=== PATIENT | female | born 1970 | race Caucasian/White ===

== ENCOUNTER 2019-02-28 13:29 | Emergency (ER) | payer MEDICARE, MEDICAID ==
[~2019-02-28] VITALS: Ht 172.7 cm; Wt 107.7 kg
[~2019-02-28 13:29] MED LIST: ACET-2119 PO; ALB0.5UD IH; ALBU18HF2 IH; ALBU4TAB4 PO; ATI1T PO; BUDE10.24 IH; CETI-1 PO; DULO-31 PO; EPIN0.3A2; HYDR-2514 PO; IMMU100V4 IV; LANS30CA56 PO; METH500T PO; MONT10TA21 PO; OMAL150V SQ; PREG75CA30 PO; THEO400C PO
[2019-02-28] MEDS ORDERED: normal saline 1000ML IV soln IVB ONE (15:15)
[2019-02-28] MEDS ORDERED: albuterol 2.5 MG/3 ML nebule CONTNEB PRN (15:15)
[2019-02-28] MEDS ORDERED: methylPREDNISolone sod succ 125mg/2ml vial IV ONE (15:15)
[2019-02-28] MEDS ORDERED: magnesium 2GM in 50ml NS 50 ML IV ONE (15:15)
[2019-02-28 15:48] LABS: BASOPHILS % (AUTO) 0.7 % (0-1); EOSINOPHILS % (AUTO) 0.6 % (0-6); HEMATOCRIT 42.2 % (35.0-45.0); HEMOGLOBIN 14.6 g/dl (12.0-16.0); LYMPHOCYTES # (AUTO) 0.9 X10'3 (1.1-4.8); LYMPHOCYTES % (AUTO) 13.4 % (21-51); MEAN CORPUSCULAR HEMOGLOBIN 31.3 PG (27.0-31.0); MEAN CORPUSCULAR HGB CONC 34.5 g/dL (33.0-36.5); MEAN CORPUSCULAR VOLUME 90.8 FL (78-98); MEAN PLATELET VOLUME 8.7 FL (7.4-10.4); MONOCYTES # (AUTO) 0.5 X10'3 (0-0.9); MONOCYTES % (AUTO) 7.5 % (2-12); NEUTROPHILS # (AUTO) 5.2 X10'3 (1.8-7.7); NEUTROPHILS % (AUTO) 77.8 % (42-75); PLATELET COUNT 248 X10'3 (140-440); RED BLOOD COUNT 4.65 X10'6 (4.20-5.60); RED CELL DISTRIBUTION WIDTH 14.6 % (11.5-14.5); WHITE BLOOD COUNT 6.7 X10'3 (4.5-11.0)
[2019-02-28 15:59] LABS: ALANINE AMINOTRANSFERASE 42 U/L (12-78); ALBUMIN/GLOBULIN RATIO 0.6 (1.1-1.5); ALKALINE PHOSPHATASE 85 IU/L (46-116); ANION GAP 9 (8-16); ASPARTATE AMINO TRANSFERASE 45 U/L (10-37); BILIRUBIN,TOTAL 0.4 MG/DL (0.1-1.0); BLOOD UREA NITROGEN 17 MG/DL (7-18); BUN/CREATININE RATIO 16.3 (6.6-38.0); CALCIUM 8.8 MG/DL (8.5-10.1); CHLORIDE 104 MMOL/L (99-107); CREATININE 1.04 MG/DL (0.40-0.90); GLUCOSE 94 MG/DL (70-104); POTASSIUM 3.5 MMOL/L (3.5-5.1); SODIUM 141 MMOL/L (135-145); TOTAL CARBON DIOXIDE 28.2 MMOL/L (24-32); TOTAL PROTEIN 7.7 G/DL (6.4-8.2); eGFR 57 ML/MIN
[2019-02-28] MEDS ORDERED: PRED20TA PO (17:36)
[2019-02-28] MEDS ORDERED: GUAI120015 PO (17:36)
[2019-02-28 17:57] VITALS: BP 132/71
== END 2019-02-28 18:00 | disposition home or self-care (01) ==
LOC: ER 13:30
DX: J44.1 Chronic obstructive pulmonary disease with (acute) exacerbation (principal); K21.9 Gastro-esophageal reflux disease without esophagitis; G89.29 Other chronic pain; F41.9 Anxiety disorder, unspecified; F32.9 Major depressive disorder, single episode, unspecified; Z98.890 Other specified postprocedural states; Z90.710 Acquired absence of both cervix and uterus; Z88.0 Allergy status to penicillin; Z88.6 Allergy status to analgesic agent; Z88.1 Allergy status to other antibiotic agents; Z88.8 Allergy status to other drugs, medicaments and biological substances; Z79.899 Other long term (current) drug therapy
CPT/HCPCS: 36415; 71045; 80053; 83605; 84484; 85025; 87040; 93005; 94640; 96365; 96366; 96375; 99284; J2930; J3475; J7030

== ENCOUNTER 2019-08-05 08:52 | Emergency (ER) | payer MEDICARE, MEDICAID ==
[~2019-08-05] VITALS: Ht 172.7 cm; Wt 88.7 kg
[~2019-08-05 08:52] MED LIST changes: +GUAI120015 PO
[2019-08-05 08:56] VITALS: BP 168/103
[2019-08-05] MEDS ORDERED: ACET-3068 PO (10:24)
--- NOTE | 2019-08-05 11:21 | NUR ---
PATIENT INSTRUCTED ON USE OF INCENTIVE SPIROMETER. PATIENT VERBALIZED UNDERSTANDING AND AWARE TO USE Q 1 HOUR WHILE AWAKE FOR DEEP INSPIRATION ENCOURAGEMENT.
== END 2019-08-05 11:32 | disposition home or self-care (01) ==
LOC: ER 08:52
DX: R07.89 Other chest pain (principal); J44.9 Chronic obstructive pulmonary disease, unspecified; K21.9 Gastro-esophageal reflux disease without esophagitis; G89.29 Other chronic pain; M79.7 Fibromyalgia; F12.90 Cannabis use, unspecified, uncomplicated; Z98.890 Other specified postprocedural states; Z90.710 Acquired absence of both cervix and uterus; Z79.899 Other long term (current) drug therapy; Z88.6 Allergy status to analgesic agent; Z88.0 Allergy status to penicillin; Z88.1 Allergy status to other antibiotic agents
CPT/HCPCS: 71046; 93005; 99283

== ENCOUNTER 2021-03-29 21:55 | Inpatient (IN) | payer MEDICARE, MEDICAID ==
[~2021-03-29] VITALS: Ht 172.7 cm; Wt 113.0 kg
[2021-03-29] MEDS ORDERED: ondansetron/PF 4mg/2ml inj IV ONE (22:25)
[2021-03-29] MEDS ORDERED: morphine 4 MG/ML inj SYRINge IV ONE (22:25)
[2021-03-29] MEDS ORDERED: normal saline 1000ml 1,000 ML IV ONE (22:25)
[2021-03-29] MEDS ORDERED: iohexol 300mg/ml 100ml inj. ONE (23:53)
[2021-03-30] MEDS ORDERED: vancomycin/NS 1 GM ADD-VANTAGE 250 ML IV STA ×2 (01:05→03:33)
[2021-03-30] MEDS ORDERED: metroNIDAZOLE-Flagyl 500mg/NS 100 ML IV STA (01:05)
[2021-03-30] MEDS ORDERED: ciprofloxacin lact 400MG/200ML 200 ML IV STA (01:05)
[2021-03-30 01:09] LABS: LYMPHOCYTES # (AUTO) 0.6 X10'3 (1.1-4.8)
[2021-03-30 01:10] LABS: BASOPHILS % (AUTO) 0.3 % (0-1); EOSINOPHILS % (AUTO) 0.1 % (0-6); HEMATOCRIT 41.3 % (35.0-45.0); LYMPHOCYTES % (AUTO) 4.9 % (21-51); MEAN CORPUSCULAR HEMOGLOBIN 29.6 PG (27.0-31.0); MEAN CORPUSCULAR HGB CONC 33.9 g/dL (33.0-36.5); MEAN CORPUSCULAR VOLUME 87.3 FL (78-98); MEAN PLATELET VOLUME 8.8 FL (7.4-10.4); MONOCYTES # (AUTO) 0.9 X10'3 (0-0.9); MONOCYTES % (AUTO) 7.6 % (2-12); NEUTROPHILS # (AUTO) 10.7 X10'3 (1.8-7.7); NEUTROPHILS % (AUTO) 87.1 % (42-75); PLATELET COUNT 253 X10'3 (140-440); RED BLOOD COUNT 4.73 X10'6 (4.20-5.60); RED CELL DISTRIBUTION WIDTH 14.1 % (11.5-14.5); WHITE BLOOD COUNT 12.3 X10'3 (4.5-11.0)
[2021-03-30 01:19] LABS: ALANINE AMINOTRANSFERASE 47 U/L (12-78); ALBUMIN 3.3 G/DL (3.4-5.0); ALBUMIN/GLOBULIN RATIO 0.7 (1.1-1.5); ALKALINE PHOSPHATASE 105 IU/L (46-116); ANION GAP 11 (8-16); ASPARTATE AMINO TRANSFERASE 36 U/L (10-37); BILIRUBIN,DIRECT 0.1 MG/DL (0-0.3); BILIRUBIN,TOTAL 0.7 MG/DL (0.1-1.0); BLOOD UREA NITROGEN 13 MG/DL (7-18); BUN/CREATININE RATIO 10.8 (6.6-38.0); CALCIUM 9.1 MG/DL (8.5-10.1); CHLORIDE 99 MMOL/L (99-107); GLUCOSE 146 MG/DL (70-104); LIPASE 90 U/L (73-393); POTASSIUM 4.4 MMOL/L (3.5-5.1); SODIUM 134 MMOL/L (135-145); TOTAL PROTEIN 7.8 G/DL (6.4-8.2); eGFR 48 ML/MIN
[2021-03-30] MEDS ORDERED: MONT-40 PO (01:22)
[2021-03-30] MEDS ORDERED: LUBI24CA9 PO (01:22)
[2021-03-30] MEDS ORDERED: TERB5TAB4 PO (01:22)
[2021-03-30] MEDS ORDERED: DULO60CA65 PO (01:22)
[2021-03-30] MEDS ORDERED: THEO400T PO (01:22)
[2021-03-30] MEDS ORDERED: SENN-263 PO (01:22)
[2021-03-30] MEDS ORDERED: METO5TAB98 PO (01:22)
[2021-03-30] MEDS ORDERED: BUDE10.2 PO (01:22)
[2021-03-30] MEDS ORDERED: PREG200C28 PO (01:22)
[2021-03-30] MEDS ORDERED: OMEP20TA5 PO (01:22)
[2021-03-30] MEDS ORDERED: TIOT4MIS2 PO (01:22)
[2021-03-30] MEDS ORDERED: LUBI8CAP5 PO (01:22)
[2021-03-30] MEDS ORDERED: potassium Cl 20 mEq SR tablet PO PRN ×2 (03:20)
[2021-03-30] MEDS ORDERED: potassium CL 10mEq/100ml bag 100 ML IV PRN (03:20)
[2021-03-30] MEDS ORDERED: magnesium Cl slow-release 64mg tablet PO PRN (03:20)
[2021-03-30] MEDS ORDERED: acetaminophen 325mg tablet PO PRN ×2 (03:20)
[2021-03-30] MEDS ORDERED: magnesium 2GM in 50ml NS 50 ML IV PRN (03:20)
[2021-03-30] MEDS ORDERED: morphine 2 MG/ML inj. syringe IV PRN (03:20)
[2021-03-30] MEDS ORDERED: magnesium 4gm in 100ml NS 100 ML IV PRN (03:20)
[2021-03-30] MEDS: normal saline 1000ml 1,000 ML IV SCH ×3 (04:02→23:20)
[2021-03-30] MEDS: metroNIDAZOLE-Flagyl 500mg/NS 100 ML IV SCH ×2 (04:02→17:40)
[2021-03-30] MEDS: morphine 2 MG/ML inj. syringe IV PRN ×3 (04:12→16:16)
[2021-03-30] MEDS: ondansetron/PF 4mg/2ml inj IV PRN ×2 (04:13→09:46)
[2021-03-30] MEDS: ipratropium 0.5 MG/2.5ML nebule NEB PRN (07:19)
[2021-03-30] MEDS: albuterol 2.5 MG/3 ML nebule NEB SCH ×3 (07:19→20:53)
[2021-03-30] MEDS: budesonide 0.5mg/2ml UD nebule IH SCH ×2 (07:19→20:53)
[2021-03-30] MEDS ORDERED: non-formulary drug (Budesonide/Formoterol Fumarate (Symbicort 160-4.5 Mcg Inhaler) 2 PUFFS PO SCH (08:00)
[2021-03-30 08:31] LABS: CLARITY,URINE CLEAR (Clear); COLOR,URINE YELLOW (Yellow); GLUCOSE, URINE NEGATIVE (Neg); KETONES,URINE NEGATIVE (Neg); LEUKOCYTE ESTERASE ,URINE NEGATIVE (Neg); NITRITES, URINE NEGATIVE (Neg); OCCULT BLOOD,URINE NEGATIVE (Neg); PROTEIN,URINE NEGATIVE (Neg); UROBILINOGEN,URINE 0.2 E.U/dL (0.2-1.0)
[2021-03-30 08:40] LABS: UA COLLECTION TYPE CLN CATCH MIDSTREAM
[2021-03-30] MEDS: TERBUTALINE 2.5 MG PO SCH ×2 (09:44→21:43)
[2021-03-30] MEDS: duloxetine 30mg CAPSULE.DR PO SCH ×2 (09:44→20:15)
[2021-03-30] MEDS: K and/or MAG REPLACEMENT MC SCH ×2 (09:44→20:00)
[2021-03-30] MEDS: theophylline anhydrous 100mg ER capsule 24-hour PO SCH ×2 (09:45→21:46)
[2021-03-30] MEDS: pregabalin 25mg capsule PO SCH ×2 (09:45→20:15)
[2021-03-30] MEDS: montelukast 10mg tablet PO SCH (09:45)
[2021-03-30] MEDS: pantoprazole 40mg Tablet.DR PO SCH (09:45)
[2021-03-30] MEDS: pregabalin 75mg capsule PO SCH ×2 (09:45→20:17)
[2021-03-30] MEDS: heparin, porcine 5000 units/ml vial SQ SCH ×2 (09:46→16:00)
--- NOTE | 2021-03-30 16:58 | NUR ---
patient arrived to the unit [id number], no signs of distress, no belongings. Patinets vitals taken , patient is resting comfortably
--- NOTE | 2021-03-30 18:25 | NUR ---
Patient in room [facility] 354. I have received report from Luzmaria ADAMS and had the opportunity to ask questions and assume patient care.
[2021-03-30 19:00] VITALS: BP 145/67
[2021-03-30] MEDS: HYDROcodone/acetaminophen 10/325mg tab PO PRN (20:16)
[2021-03-30] MEDS: ciprofloxacin lact 400MG/200ML 200 ML IV SCH (21:52)
[2021-03-31] VITALS: BP 97/50
[2021-03-31] MEDS: heparin, porcine 5000 units/ml vial SQ SCH ×4 (00:33→23:48)
[2021-03-31] MEDS: metroNIDAZOLE-Flagyl 500mg/NS 100 ML IV SCH ×4 (00:35→23:47)
[2021-03-31] MEDS: morphine 2 MG/ML inj. syringe IV PRN ×6 (01:41→23:53)
[2021-03-31] MEDS: albuterol 2.5 MG/3 ML nebule NEB SCH ×4 (03:00→20:58)
[2021-03-31] MEDS: normal saline 1000ml 1,000 ML IV SCH ×2 (05:18→17:50)
[2021-03-31 06:09] LABS: BASOPHILS % (AUTO) 0.2 % (0-1); EOSINOPHILS % (AUTO) 0 % (0-6); HEMATOCRIT 37.2 % (35.0-45.0); HEMOGLOBIN 12.6 g/dl (12.0-16.0); LYMPHOCYTES # (AUTO) 0.5 X10'3 (1.1-4.8); LYMPHOCYTES % (AUTO) 3.6 % (21-51); MEAN CORPUSCULAR HEMOGLOBIN 29.6 PG (27.0-31.0); MEAN CORPUSCULAR HGB CONC 33.9 g/dL (33.0-36.5); MEAN CORPUSCULAR VOLUME 87.1 FL (78-98); MONOCYTES # (AUTO) 0.9 X10'3 (0-0.9); MONOCYTES % (AUTO) 6.3 % (2-12); NEUTROPHILS % (AUTO) 89.9 % (42-75); PLATELET COUNT 230 X10'3 (140-440); RED BLOOD COUNT 4.27 X10'6 (4.20-5.60); RED CELL DISTRIBUTION WIDTH 14.1 % (11.5-14.5); WHITE BLOOD COUNT 14.5 X10'3 (4.5-11.0)
[2021-03-31 06:26] LABS: ALANINE AMINOTRANSFERASE 83 U/L (12-78); ALBUMIN 2.5 G/DL (3.4-5.0); ALBUMIN/GLOBULIN RATIO 0.6 (1.1-1.5); ALKALINE PHOSPHATASE 113 IU/L (46-116); ANION GAP 9 (8-16); ASPARTATE AMINO TRANSFERASE 81 U/L (10-37); BILIRUBIN,TOTAL 1.2 MG/DL (0.1-1.0); BLOOD UREA NITROGEN 10 MG/DL (7-18); BUN/CREATININE RATIO 9.5 (6.6-38.0); CALCIUM 8.6 MG/DL (8.5-10.1); CHLORIDE 105 MMOL/L (99-107); CREATININE 1.05 MG/DL (0.40-0.90); GLUCOSE 150 MG/DL (70-104); POTASSIUM 3.9 MMOL/L (3.5-5.1); SODIUM 136 MMOL/L (135-145); TOTAL CARBON DIOXIDE 22.1 MMOL/L (24-32); TOTAL PROTEIN 6.6 G/DL (6.4-8.2); eGFR 55 ML/MIN
--- NOTE | 2021-03-31 06:30 | NUR ---
Problems reprioritized. Patient report given, questions answered & plan of care reviewed with Luzmaria Rosado.
[2021-03-31] MEDS: budesonide 0.5mg/2ml UD nebule IH SCH ×2 (07:48→20:58)
[2021-03-31 08:00] VITALS: BP 132/54
[2021-03-31] MEDS: K and/or MAG REPLACEMENT MC SCH ×2 (08:00→19:53)
[2021-03-31] MEDS: ciprofloxacin lact 400MG/200ML 200 ML IV SCH ×2 (09:55→20:16)
[2021-03-31] MEDS: pantoprazole 40mg Tablet.DR PO SCH (09:56)
[2021-03-31] MEDS: TERBUTALINE 2.5 MG PO SCH ×2 (09:56→20:19)
[2021-03-31] MEDS: montelukast 10mg tablet PO SCH (09:56)
[2021-03-31] MEDS: theophylline anhydrous 100mg ER capsule 24-hour PO SCH ×2 (09:57→20:21)
[2021-03-31] MEDS: pregabalin 25mg capsule PO SCH ×2 (09:57→20:18)
[2021-03-31] MEDS: pregabalin 75mg capsule PO SCH ×2 (10:11→20:19)
[2021-03-31] MEDS: duloxetine 30mg CAPSULE.DR PO SCH ×2 (10:13→20:21)
[2021-03-31 11:00] VITALS: BP 117/66
[2021-03-31] MEDS: HYDROcodone/acetaminophen 10/325mg tab PO PRN ×2 (11:55→20:45)
[2021-03-31 18:00] VITALS: BP 110/64
[2021-03-31] MEDS: lactobacillus rhamnosus 10,000 MMU CELLS/CAPSULE PO SCH (20:17)
[2021-04-01] VITALS: BP 95/56
[2021-04-01] MEDS: albuterol 2.5 MG/3 ML nebule NEB SCH ×4 (02:25→21:08)
[2021-04-01 06:13] LABS: BASOPHILS % (AUTO) 0.3 % (0-1); EOSINOPHILS % (AUTO) 0.2 % (0-6); HEMATOCRIT 33.8 % (35.0-45.0); HEMOGLOBIN 11.4 g/dl (12.0-16.0); LYMPHOCYTES # (AUTO) 0.6 X10'3 (1.1-4.8); LYMPHOCYTES % (AUTO) 5.7 % (21-51); MEAN CORPUSCULAR HEMOGLOBIN 29.5 PG (27.0-31.0); MEAN CORPUSCULAR HGB CONC 33.6 g/dL (33.0-36.5); MEAN CORPUSCULAR VOLUME 87.8 FL (78-98); MONOCYTES # (AUTO) 0.8 X10'3 (0-0.9); MONOCYTES % (AUTO) 6.7 % (2-12); NEUTROPHILS # (AUTO) 9.9 X10'3 (1.8-7.7); NEUTROPHILS % (AUTO) 87.1 % (42-75); PLATELET COUNT 194 X10'3 (140-440); RED BLOOD COUNT 3.85 X10'6 (4.20-5.60); RED CELL DISTRIBUTION WIDTH 13.9 % (11.5-14.5); WHITE BLOOD COUNT 11.3 X10'3 (4.5-11.0)
[2021-04-01 06:22] LABS: ALANINE AMINOTRANSFERASE 62 U/L (12-78); ALBUMIN 2.1 G/DL (3.4-5.0); ALBUMIN/GLOBULIN RATIO 0.5 (1.1-1.5); ALKALINE PHOSPHATASE 115 IU/L (46-116); ANION GAP 7 (8-16); ASPARTATE AMINO TRANSFERASE 44 U/L (10-37); BILIRUBIN,TOTAL 0.6 MG/DL (0.1-1.0); BLOOD UREA NITROGEN 8 MG/DL (7-18); BUN/CREATININE RATIO 8.7 (6.6-38.0); CALCIUM 8.3 MG/DL (8.5-10.1); CHLORIDE 106 MMOL/L (99-107); CREATININE 0.92 MG/DL (0.40-0.90); GLUCOSE 131 MG/DL (70-104); POTASSIUM 3.7 MMOL/L (3.5-5.1); SODIUM 138 MMOL/L (135-145); TOTAL CARBON DIOXIDE 24.9 MMOL/L (24-32); TOTAL PROTEIN 6.1 G/DL (6.4-8.2); eGFR 65 ML/MIN
[2021-04-01] MEDS: normal saline 1000ml 1,000 ML IV SCH ×2 (06:22→15:20)
--- NOTE | 2021-04-01 06:30 | NUR ---
Patient in room [facility] 354. I have received report from Scott ADAMS and had the opportunity to ask questions and assume patient care.
[2021-04-01 07:00] VITALS: BP 142/84
[2021-04-01] MEDS: morphine 2 MG/ML inj. syringe IV PRN ×3 (07:06→17:37)
[2021-04-01] MEDS: budesonide 0.5mg/2ml UD nebule IH SCH ×2 (07:56→21:08)
[2021-04-01] MEDS: K and/or MAG REPLACEMENT MC SCH ×2 (08:00→20:00)
[2021-04-01] MEDS: HYDROcodone/acetaminophen 10/325mg tab PO PRN ×3 (08:51→19:45)
[2021-04-01] MEDS: TERBUTALINE 2.5 MG PO SCH ×2 (08:54→20:19)
[2021-04-01] MEDS: pregabalin 25mg capsule PO SCH ×2 (08:55→20:20)
[2021-04-01] MEDS: pregabalin 75mg capsule PO SCH ×2 (08:55→20:20)
[2021-04-01] MEDS: theophylline anhydrous 100mg ER capsule 24-hour PO SCH ×2 (08:55→20:21)
[2021-04-01] MEDS: montelukast 10mg tablet PO SCH (08:56)
[2021-04-01] MEDS: duloxetine 30mg CAPSULE.DR PO SCH ×2 (08:56→20:20)
[2021-04-01] MEDS: pantoprazole 40mg Tablet.DR PO SCH (08:56)
[2021-04-01] MEDS: lactobacillus rhamnosus 10,000 MMU CELLS/CAPSULE PO SCH ×2 (08:56→20:19)
[2021-04-01] MEDS: heparin, porcine 5000 units/ml vial SQ SCH ×2 (08:59→15:13)
[2021-04-01] MEDS: metroNIDAZOLE-Flagyl 500mg/NS 100 ML IV SCH ×2 (09:00→15:05)
[2021-04-01] MEDS: ciprofloxacin lact 400MG/200ML 200 ML IV SCH ×2 (10:36→20:19)
[2021-04-01 12:00] VITALS: BP 118/68
--- NOTE | 2021-04-01 18:25 | NUR ---
Problems reprioritized. Patient report given, questions answered & plan of care reviewed with Kylah ADAMS.
[2021-04-01 20:00] VITALS: BP 106/64
[2021-04-02] VITALS: BP 144/89
[2021-04-02] MEDS: normal saline 1000ml 1,000 ML IV SCH ×3 (00:20→22:21)
[2021-04-02] MEDS: heparin, porcine 5000 units/ml vial SQ SCH ×3 (00:21→16:00)
[2021-04-02] MEDS: metroNIDAZOLE-Flagyl 500mg/NS 100 ML IV SCH ×3 (00:23→16:00)
[2021-04-02] MEDS: morphine 2 MG/ML inj. syringe IV PRN ×4 (00:23→17:18)
[2021-04-02] MEDS: albuterol 2.5 MG/3 ML nebule NEB SCH ×4 (02:11→20:40)
[2021-04-02 06:21] LABS: BASOPHILS % (AUTO) 0.2 % (0-1); EOSINOPHILS % (AUTO) 0.3 % (0-6); HEMATOCRIT 33.5 % (35.0-45.0); HEMOGLOBIN 11.4 g/dl (12.0-16.0); LYMPHOCYTES # (AUTO) 0.6 X10'3 (1.1-4.8); LYMPHOCYTES % (AUTO) 6.5 % (21-51); MEAN CORPUSCULAR HEMOGLOBIN 30.1 PG (27.0-31.0); MEAN CORPUSCULAR HGB CONC 34.2 g/dL (33.0-36.5); MEAN CORPUSCULAR VOLUME 88.1 FL (78-98); MONOCYTES # (AUTO) 0.7 X10'3 (0-0.9); MONOCYTES % (AUTO) 7.4 % (2-12); NEUTROPHILS # (AUTO) 8.4 X10'3 (1.8-7.7); NEUTROPHILS % (AUTO) 85.6 % (42-75); PLATELET COUNT 223 X10'3 (140-440); RED CELL DISTRIBUTION WIDTH 13.8 % (11.5-14.5); WHITE BLOOD COUNT 9.8 X10'3 (4.5-11.0)
[2021-04-02 06:29] LABS: ALANINE AMINOTRANSFERASE 50 U/L (12-78); ALBUMIN 2.1 G/DL (3.4-5.0); ALBUMIN/GLOBULIN RATIO 0.5 (1.1-1.5); ALKALINE PHOSPHATASE 129 IU/L (46-116); ANION GAP 10 (8-16); ASPARTATE AMINO TRANSFERASE 37 U/L (10-37); BILIRUBIN,TOTAL 0.5 MG/DL (0.1-1.0); BLOOD UREA NITROGEN 5 MG/DL (7-18); BUN/CREATININE RATIO 5.3 (6.6-38.0); CALCIUM 8.5 MG/DL (8.5-10.1); CHLORIDE 105 MMOL/L (99-107); CREATININE 0.94 MG/DL (0.40-0.90); GLUCOSE 121 MG/DL (70-104); POTASSIUM 3.4 MMOL/L (3.5-5.1); SODIUM 139 MMOL/L (135-145); TOTAL CARBON DIOXIDE 24.4 MMOL/L (24-32); TOTAL PROTEIN 6.3 G/DL (6.4-8.2); eGFR 63 ML/MIN
--- NOTE | 2021-04-02 06:44 | NUR ---
Problems reprioritized. Patient report given, questions answered & plan of care reviewed with BRYAN delcid.
[2021-04-02] MEDS: TERBUTALINE 2.5 MG PO SCH ×2 (07:32→19:47)
[2021-04-02] MEDS: montelukast 10mg tablet PO SCH (07:32)
[2021-04-02] MEDS: duloxetine 30mg CAPSULE.DR PO SCH ×2 (07:32→19:47)
[2021-04-02] MEDS: pregabalin 25mg capsule PO SCH ×2 (07:33→19:48)
[2021-04-02] MEDS: theophylline anhydrous 100mg ER capsule 24-hour PO SCH ×2 (07:33→19:47)
[2021-04-02] MEDS: pregabalin 75mg capsule PO SCH ×2 (07:34→19:47)
[2021-04-02] MEDS: lactobacillus rhamnosus 10,000 MMU CELLS/CAPSULE PO SCH ×2 (07:34→19:47)
[2021-04-02] MEDS: pantoprazole 40mg Tablet.DR PO SCH (07:34)
[2021-04-02] MEDS: HYDROcodone/acetaminophen 10/325mg tab PO PRN ×3 (07:35→19:49)
[2021-04-02 07:50] VITALS: BP 136/81
[2021-04-02] MEDS: K and/or MAG REPLACEMENT MC SCH ×3 (08:00→20:00)
[2021-04-02] MEDS: budesonide 0.5mg/2ml UD nebule IH SCH ×2 (08:47→20:40)
[2021-04-02] MEDS ORDERED: potassium Cl 20 mEq SR tablet PO STA (08:55)
[2021-04-02] MEDS: ciprofloxacin lact 400MG/200ML 200 ML IV SCH ×2 (09:10→19:46)
[2021-04-02 13:50] VITALS: BP 115/65
[2021-04-02] MEDS: ondansetron/PF 4mg/2ml inj IV PRN (14:17)
--- NOTE | 2021-04-02 17:34 | NUR ---
PAGER ID: [phone] MESSAGE: Heidi German was waiting until you rounded to ask you about replacement orders for 3.4 k and then forgot about it! ok to order k? Jocy [id number]
--- NOTE | 2021-04-02 18:36 | NUR ---
Gave report to Janet ADAMS.
--- NOTE | 2021-04-02 18:42 | NUR ---
Patient in room [facility] 354. I have received report from BRYAN Sandra and had the opportunity to ask questions and assume patient care.
[2021-04-02] MEDS ORDERED: magnesium 4gm in 100ml NS 100 ML IV PRN (19:40)
[2021-04-02] MEDS ORDERED: magnesium 2GM in 50ml NS 50 ML IV PRN (19:40)
[2021-04-02] MEDS ORDERED: potassium Cl 20 mEq SR tablet PO PRN (19:40)
[2021-04-02] MEDS ORDERED: potassium CL 10mEq/100ml bag 100 ML IV PRN (19:40)
[2021-04-02] MEDS ORDERED: magnesium Cl slow-release 64mg tablet PO PRN (19:40)
[2021-04-02 20:00] VITALS: BP 121/64
[2021-04-02 20:07] LABS: MAGNESIUM 2.1 MG/DL (1.5-2.4)
[2021-04-02] MEDS: potassium Cl 20 mEq SR tablet PO PRN (20:19)
[2021-04-02] MEDS: diatr meglu/diatrizoate 30ml oral sol.-(3 dose) bottle PO SCH (21:36)
[2021-04-03] VITALS: BP 113/65
[2021-04-03] MEDS: potassium Cl 20 mEq SR tablet PO PRN ×2 (00:31→04:31)
[2021-04-03] MEDS: HYDROcodone/acetaminophen 10/325mg tab PO PRN ×5 (00:33→21:47)
[2021-04-03] MEDS: metroNIDAZOLE-Flagyl 500mg/NS 100 ML IV SCH ×3 (00:33→17:28)
[2021-04-03] MEDS: heparin, porcine 5000 units/ml vial SQ SCH ×3 (00:35→17:22)
[2021-04-03] MEDS: albuterol 2.5 MG/3 ML nebule NEB SCH ×4 (02:49→20:20)
[2021-04-03] MEDS: morphine 2 MG/ML inj. syringe IV PRN ×2 (03:23→07:34)
[2021-04-03 06:20] LABS: BASOPHILS % (AUTO) 0.5 % (0-1); EOSINOPHILS # (AUTO) 0.1 X10'3 (0-0.9); EOSINOPHILS % (AUTO) 0.8 % (0-6); HEMATOCRIT 31.2 % (35.0-45.0); HEMOGLOBIN 10.6 g/dl (12.0-16.0); LYMPHOCYTES # (AUTO) 0.6 X10'3 (1.1-4.8); LYMPHOCYTES % (AUTO) 8.5 % (21-51); MEAN CORPUSCULAR HEMOGLOBIN 29.7 PG (27.0-31.0); MEAN CORPUSCULAR HGB CONC 34.1 g/dL (33.0-36.5); MEAN CORPUSCULAR VOLUME 87.1 FL (78-98); MEAN PLATELET VOLUME 8.6 FL (7.4-10.4); MONOCYTES # (AUTO) 0.7 X10'3 (0-0.9); MONOCYTES % (AUTO) 8.7 % (2-12); NEUTROPHILS # (AUTO) 6.1 X10'3 (1.8-7.7); NEUTROPHILS % (AUTO) 81.5 % (42-75); PLATELET COUNT 212 X10'3 (140-440); RED BLOOD COUNT 3.58 X10'6 (4.20-5.60); WHITE BLOOD COUNT 7.5 X10'3 (4.5-11.0)
[2021-04-03 06:29] LABS: ALANINE AMINOTRANSFERASE 34 U/L (12-78); ALBUMIN/GLOBULIN RATIO 0.5 (1.1-1.5); ALKALINE PHOSPHATASE 118 IU/L (46-116); ANION GAP 7 (8-16); ASPARTATE AMINO TRANSFERASE 20 U/L (10-37); BILIRUBIN,TOTAL 0.3 MG/DL (0.1-1.0); BLOOD UREA NITROGEN 6 MG/DL (7-18); CALCIUM 8.2 MG/DL (8.5-10.1); CHLORIDE 107 MMOL/L (99-107); CREATININE 0.75 MG/DL (0.40-0.90); GLUCOSE 115 MG/DL (70-104); MAGNESIUM 2.3 MG/DL (1.5-2.4); POTASSIUM 3.6 MMOL/L (3.5-5.1); SODIUM 138 MMOL/L (135-145); TOTAL CARBON DIOXIDE 24.1 MMOL/L (24-32); TOTAL PROTEIN 5.8 G/DL (6.4-8.2); eGFR 82 ML/MIN
[2021-04-03] MEDS: budesonide 0.5mg/2ml UD nebule IH SCH ×2 (07:20→20:20)
[2021-04-03] MEDS: diatr meglu/diatrizoate 30ml oral sol.-(3 dose) bottle PO SCH ×3 (07:28→21:00)
[2021-04-03] MEDS: TERBUTALINE 2.5 MG PO SCH ×2 (07:31→21:16)
[2021-04-03] MEDS: montelukast 10mg tablet PO SCH (07:32)
[2021-04-03] MEDS: theophylline anhydrous 100mg ER capsule 24-hour PO SCH ×2 (07:32→21:16)
[2021-04-03] MEDS: pregabalin 75mg capsule PO SCH ×2 (07:32→21:14)
[2021-04-03] MEDS: pregabalin 25mg capsule PO SCH ×2 (07:32→21:14)
[2021-04-03] MEDS: lactobacillus rhamnosus 10,000 MMU CELLS/CAPSULE PO SCH ×2 (07:32→21:15)
[2021-04-03] MEDS: duloxetine 30mg CAPSULE.DR PO SCH ×2 (07:33→21:15)
[2021-04-03] MEDS: K and/or MAG REPLACEMENT MC SCH ×4 (07:33→20:00)
[2021-04-03] MEDS: pantoprazole 40mg Tablet.DR PO SCH (07:33)
[2021-04-03] MEDS: normal saline 1000ml 1,000 ML IV SCH ×2 (07:55→17:20)
[2021-04-03 08:00] VITALS: BP 133/76
[2021-04-03] MEDS ORDERED: iohexol 300mg/ml 100ml inj. ONE (10:32)
[2021-04-03] MEDS: ciprofloxacin lact 400MG/200ML 200 ML IV SCH ×2 (11:00→21:14)
[2021-04-03 11:25] VITALS: BP 134/69
--- NOTE | 2021-04-03 12:30 | NUR ---
PAGER ID: [phone] MESSAGE: Heidi Nicolás [id number] Pt. states she would like to know what happened with CT results and what the plan will be for her. Do you want her NPO? or stay on FL? Jocy [id number]
--- NOTE | 2021-04-03 12:31 | NUR ---
Hospitalist responded quickly. States she has consulted with Clive, and Debora, and that she will come discuss plans with pt. shortly. No new orders at this time and pt. may remain on FL diet.
--- NOTE | 2021-04-03 14:12 | NUR ---
PAGER ID: [phone] MESSAGE: Heidi Monzon [id number] Pt. states she is still in severe pain and does not feel comfortable going home. She states she does not feel that the CT results were explained to her well enough. Jocy [id number]
--- NOTE | 2021-04-03 14:23 | NUR ---
Hospitalist rounded and educated pt. with hot dip galvanizer and Primary RN.
[2021-04-03] MEDS ORDERED: diatr meglu/diatrizoate 30ml oral sol.-(3 dose) bottle ONE (16:19)
--- NOTE | 2021-04-03 16:55 | NUR ---
Hospitalist called and asked for last two visit notes and labs from grief counselor, Nata Gonzales ( [facility]) number [phone]. Request business unit director to work on it.
--- NOTE | 2021-04-03 17:20 | NUR ---
PAGER ID: [phone] MESSAGE: Nkechi-Surg [phone] Re: [facility] needs you to call them re: critical findings please call me for phone number Dr Bonilla called back I gave her the phone number for Dr Cabral with [facility] radiology for critical findings. Dr Bonlila will call Dr Cabral back
--- NOTE | 2021-04-03 17:47 | NUR ---
Dr. Cazares rounded on pt. giving her much education and explanation on most current CT scan. Plans to switch pt. to CL on Tuesday NPO after midnight on Tuesday and pt. may have colostomy placed or drain placed in abscess Tuesday. Meanwhile consult with VIOLA Day.
[2021-04-03 18:00] VITALS: BP 155/86
--- NOTE | 2021-04-03 18:34 | NUR ---
Patient in room [facility] 354. I have received report from BRYAN Sandra and had the opportunity to ask questions and assume patient care.
--- NOTE | 2021-04-03 18:46 | NUR ---
Gave report to Janet ADAMS.
[2021-04-04] VITALS: BP 139/77
[2021-04-04] MEDS: heparin, porcine 5000 units/ml vial SQ SCH ×4 (00:10→23:52)
[2021-04-04] MEDS: metroNIDAZOLE-Flagyl 500mg/NS 100 ML IV SCH ×4 (00:10→23:53)
[2021-04-04] MEDS: HYDROcodone/acetaminophen 10/325mg tab PO PRN ×3 (01:52→10:26)
[2021-04-04] MEDS: albuterol 2.5 MG/3 ML nebule NEB SCH ×4 (02:34→20:18)
[2021-04-04] MEDS: normal saline 1000ml 1,000 ML IV SCH ×3 (04:54→23:20)
[2021-04-04] MEDS: diatr meglu/diatrizoate 30ml oral sol.-(3 dose) bottle PO SCH ×2 (07:00→21:00)
--- NOTE | 2021-04-04 07:05 | NUR ---
Available for report to nurse taking over care. RN took report from charge nurse.
[2021-04-04 07:49] LABS: BASOPHILS % (AUTO) 0.5 % (0-1); EOSINOPHILS # (AUTO) 0.1 X10'3 (0-0.9); EOSINOPHILS % (AUTO) 1.4 % (0-6); HEMATOCRIT 31.7 % (35.0-45.0); HEMOGLOBIN 10.7 g/dl (12.0-16.0); LYMPHOCYTES # (AUTO) 0.6 X10'3 (1.1-4.8); LYMPHOCYTES % (AUTO) 10.5 % (21-51); MEAN CORPUSCULAR HEMOGLOBIN 29.5 PG (27.0-31.0); MEAN CORPUSCULAR HGB CONC 33.8 g/dL (33.0-36.5); MEAN PLATELET VOLUME 8.6 FL (7.4-10.4); MONOCYTES # (AUTO) 0.6 X10'3 (0-0.9); MONOCYTES % (AUTO) 9.9 % (2-12); NEUTROPHILS # (AUTO) 4.6 X10'3 (1.8-7.7); NEUTROPHILS % (AUTO) 77.7 % (42-75); PLATELET COUNT 255 X10'3 (140-440); RED BLOOD COUNT 3.64 X10'6 (4.20-5.60); WHITE BLOOD COUNT 5.9 X10'3 (4.5-11.0)
[2021-04-04 08:00] LABS: ALANINE AMINOTRANSFERASE 25 U/L (12-78); ALBUMIN 2.1 G/DL (3.4-5.0); ALBUMIN/GLOBULIN RATIO 0.5 (1.1-1.5); ALKALINE PHOSPHATASE 115 IU/L (46-116); ANION GAP 10 (8-16); ASPARTATE AMINO TRANSFERASE 19 U/L (10-37); BILIRUBIN,TOTAL 0.3 MG/DL (0.1-1.0); BLOOD UREA NITROGEN 5 MG/DL (7-18); BUN/CREATININE RATIO 6.9 (6.6-38.0); CALCIUM 8.2 MG/DL (8.5-10.1); CHLORIDE 106 MMOL/L (99-107); CREATININE 0.72 MG/DL (0.40-0.90); GLUCOSE 108 MG/DL (70-104); MAGNESIUM 2.2 MG/DL (1.5-2.4); POTASSIUM 3.3 MMOL/L (3.5-5.1); SODIUM 141 MMOL/L (135-145); TOTAL CARBON DIOXIDE 25.4 MMOL/L (24-32); TOTAL PROTEIN 6.1 G/DL (6.4-8.2); eGFR 86 ML/MIN
[2021-04-04] MEDS: K and/or MAG REPLACEMENT MC SCH ×4 (08:00→20:00)
[2021-04-04 08:05] VITALS: BP 136/62
[2021-04-04] MEDS: pregabalin 75mg capsule PO SCH ×2 (08:37→21:12)
[2021-04-04] MEDS: montelukast 10mg tablet PO SCH (08:38)
[2021-04-04] MEDS: pregabalin 25mg capsule PO SCH ×2 (08:38→21:12)
[2021-04-04] MEDS: TERBUTALINE 2.5 MG PO SCH ×2 (08:38→21:11)
[2021-04-04] MEDS: theophylline anhydrous 100mg ER capsule 24-hour PO SCH ×2 (08:39→21:10)
[2021-04-04] MEDS: pantoprazole 40mg Tablet.DR PO SCH (08:39)
[2021-04-04] MEDS: lactobacillus rhamnosus 10,000 MMU CELLS/CAPSULE PO SCH ×2 (08:39→21:00)
[2021-04-04] MEDS: duloxetine 30mg CAPSULE.DR PO SCH ×2 (08:39→21:11)
[2021-04-04] MEDS: budesonide 0.5mg/2ml UD nebule IH SCH ×2 (09:16→20:18)
[2021-04-04] MEDS: ciprofloxacin lact 400MG/200ML 200 ML IV SCH ×2 (10:23→19:25)
[2021-04-04 10:30] LABS: PLATELET ESTIMATE NORMAL; TOTAL CELLS COUNTED 100
[2021-04-04] MEDS ORDERED: PEG 3350/Na sulf,bicarb,Cl/KCl oral sol 4 liter bottle PO ONE ×2 (11:15→19:00)
[2021-04-04] MEDS: potassium Cl 20 mEq SR tablet PO PRN ×2 (11:26→21:52)
[2021-04-04 11:39] VITALS: BP 139/83
--- NOTE | 2021-04-04 14:20 | NUR ---
Initial: Pt admit for acute diverticulitis with microperforation. Patient has been on a liquid diet throughout most of LOS and eating well with average 75% PO intake though unable to meet estimated nutrient needs on current diet order. Noted pt NPO for OR to begin 04/05. Per MD note pt pending exploratory laparotomy with possible sigmoid resection and ostomy. LBM 04/03. Will continue to follow closely. Recommendations: 1) Advance to low fiber diet as medically indicated 2) Consider nutrition support if expected prolonged return of bowel function post-op given insufficient nutrition since admit (5 days) 3) Bowel care per MD 4) Scaled weight this admit; weekly scaled weights thereafter Addendum: 04/04/21 at [address] Amended: Links added.
[2021-04-04] MEDS ORDERED: calcium carbonate 500mg chew tablet PO PRN (14:30)
--- NOTE | 2021-04-04 18:02 | NUR ---
Problems reprioritized. Patient report given, questions answered & plan of care reviewed with Janet ADAMS.
--- NOTE | 2021-04-04 18:21 | NUR ---
Patient in room [facility] 354. I have received report from BRYAN Stapleton and had the opportunity to ask questions and assume patient care.
[2021-04-04] MEDS: ondansetron/PF 4mg/2ml inj IV PRN (19:24)
[2021-04-04 20:00] VITALS: BP 163/95
[2021-04-04] MEDS: famotidine 20mg tablet PO SCH (21:11)
[2021-04-04] MEDS: neomycin sulfate 500mg tablet PO SCH (22:56)
[2021-04-05] VITALS (9 sets, daily range): BP systolic 111–174; BP diastolic 60–101
[2021-04-05] MEDS: neomycin sulfate 500mg tablet PO SCH ×2 (00:33→02:25)
[2021-04-05] MEDS: HYDROcodone/acetaminophen 10/325mg tab PO PRN ×2 (00:38→05:48)
[2021-04-05] MEDS: albuterol 2.5 MG/3 ML nebule NEB SCH ×4 (03:00→20:58)
--- NOTE | 2021-04-05 06:24 | NUR ---
Problems reprioritized. Patient report given, questions answered & plan of care reviewed with BRYAN Pearce.
--- NOTE | 2021-04-05 07:07 | NUR ---
Called OR spoke to the charge nurse Bahman let him know that patient still not clear with the bowel prep done. He said he will let anesthesiologist and Dr. Cazares know
[2021-04-05 07:12] LABS: MAGNESIUM 2.1 MG/DL (1.5-2.4); POTASSIUM 3.3 MMOL/L (3.5-5.1)
[2021-04-05] MEDS ORDERED: iohexol 300 MG/1 ML 50ml polymer ONE (07:33)
[2021-04-05] MEDS: normal saline 1000ml 1,000 ML IV SCH ×2 (07:36→23:19)
[2021-04-05] MEDS: metroNIDAZOLE-Flagyl 500mg/NS 100 ML IV SCH ×3 (07:36→23:48)
--- NOTE | 2021-04-05 07:39 | NUR ---
Patient on left side lying position at this time and appears to be comfortable at this time. Will hold off to the morphine at this time. Awaiting for OR tech to come pick her up. Boyfriend at bedside.
[2021-04-05] MEDS ORDERED: LIDOcaine 2% (20mg/ml) 5ml vial ONE (07:47)
[2021-04-05] MEDS ORDERED: midazolam 1 mg/ML 2ml injection ONE (07:47)
[2021-04-05] MEDS ORDERED: propofol inj 20 ML IV ONE (07:47)
[2021-04-05] MEDS ORDERED: fentaNYL /PF 50mcg/ml 5ml ampule ONE (07:47)
[2021-04-05] MEDS ORDERED: rocuronium 10mg/ml inj IV ONE ×2 (07:48→09:05)
[2021-04-05] MEDS ORDERED: ondansetron/PF 4mg/2ml inj IV PRN (07:55)
[2021-04-05] MEDS ORDERED: fentaNYL/PF 50MCG/1 ML 2ML syringe IV PRN ×2 (07:55)
[2021-04-05] MEDS ORDERED: labetalol 20mg/4ml (5mg/ml) syringe IV PRN (07:55)
[2021-04-05] MEDS ORDERED: morphine 4 MG/ML inj SYRINge IV PRN (07:55)
[2021-04-05] MEDS ORDERED: ringers solution, lacted 1,000 ML IV SCH (07:55)
[2021-04-05] MEDS ORDERED: morphine 2 MG/ML inj. syringe IV PRN (07:55)
[2021-04-05] MEDS ORDERED: hydrALAZINE 20mg/ml inj. IV PRN (07:55)
--- NOTE | 2021-04-05 07:56 | NUR ---
Patient went to OR, hands off report given to OR tech. IV Ciprofloxacin placed in the chart and sent with patient
[2021-04-05] MEDS: TERBUTALINE 2.5 MG PO SCH ×2 (08:00→21:09)
[2021-04-05] MEDS: ciprofloxacin lact 400MG/200ML 200 ML IV SCH ×2 (08:00→19:31)
[2021-04-05] MEDS: pregabalin 75mg capsule PO SCH ×2 (08:00→21:09)
[2021-04-05] MEDS: montelukast 10mg tablet PO SCH (08:00)
[2021-04-05] MEDS: K and/or MAG REPLACEMENT MC SCH ×4 (08:00→20:00)
[2021-04-05] MEDS: duloxetine 30mg CAPSULE.DR PO SCH ×2 (08:00→21:09)
[2021-04-05] MEDS: pregabalin 25mg capsule PO SCH ×2 (08:00→21:10)
[2021-04-05] MEDS: lactobacillus rhamnosus 10,000 MMU CELLS/CAPSULE PO SCH ×2 (08:00→21:11)
[2021-04-05] MEDS: famotidine 20mg tablet PO SCH ×2 (08:00→21:09)
[2021-04-05] MEDS: heparin, porcine 5000 units/ml vial SQ SCH ×3 (08:00→23:49)
[2021-04-05] MEDS: theophylline anhydrous 100mg ER capsule 24-hour PO SCH ×2 (08:00→21:08)
[2021-04-05] MEDS ORDERED: BUPIVAcaine/PF 2.5 mg/ml (0.25%) 30ml vial ONE (08:09)
[2021-04-05] MEDS ORDERED: sevoflurane 250ml liquid IH ONE (08:10)
[2021-04-05] MEDS ORDERED: BUPIVAcaine/PF 2.5mg/ml (0.25%) 10ml vial ONE (08:10)
[2021-04-05] MEDS ORDERED: BUPIVACAINE liposomal/PF 13.3 MG/ML vial IM ONE (08:10)
[2021-04-05] MEDS ORDERED: ondansetron/PF 4mg/2ml inj ONE (08:10)
--- NOTE | 2021-04-05 08:29 | NUR ---
I tried to call Recovery Room to give report right after patient left the room to OR but no one picking up the phone. I tried again for the second time to give report, no one still answering the phone.
[2021-04-05] MEDS ORDERED: albumin (Human) 5% 250ml 250 ML IV ONE ×2 (08:36→08:53)
[2021-04-05] MEDS ORDERED: dexamethasone sod phosphate 4mg/ml inj. ONE (09:00)
[2021-04-05] MEDS: budesonide 0.5mg/2ml UD nebule IH SCH ×2 (09:00→20:58)
[2021-04-05] MEDS ORDERED: clindamycin phosphate 150mg/ml inj. ONE (09:26)
[2021-04-05] MEDS ORDERED: gentamicin 40 MG/1 ML inj ONE (09:26)
[2021-04-05] MEDS ORDERED: sugammadex 200mg/2ml injection IV ONE (09:38)
--- NOTE | 2021-04-05 11:10 | NUR ---
Received from OR via SURGICAL BED , accompanied by Anesthesiologist LAURA and report given by Anesthesiolgist. PATIENT WITH 10L MASK ON WITH 100% SATURATIONS. ABDOMINAL DRESSING IS CDI AND RIGHT OF IT IS A TIFFANIE DRAIN. EMPTIED FOR 75CC UPON ARRIVAL. LEFT OF DRESSING TO ABDOMEN IS A COLOSTOMY BAG THAT IS CDI. NO DRAINAGE PRESENT TO ABDOMEN DRESSING AT THIS TIME. VSS. NON VERBAL PAIN SCALE USED AT THIS TIME. Addendum: 04/05/21 at 1120 by Lambert Jacobson RN, RN Amended: Links added.
--- NOTE | 2021-04-05 12:00 | NUR ---
PATIENT HAS MET ALL CRITERIA FOR TRANSFER TO THE SURGICAL/[facility]/PCU/ORTHO/ICU FLOOR. VSS. DRESSINGS INTACT. BED LOW, CALL LIGHT PRESENT AND 2 RAILS UP. RN PRESENT TO ACCEPT CARE OF PATIENT AND REPORT HAS BEEN CALLED. ALL QUESTIONS ANSWERED TO ACCEPTING RN. BRYAN MUÑOZ PRESENT TO ACCEPT CARE OF PATIENT. CPAP AT BEDSIDE. ADVISED NEED FOR A CONTINUOUS PULSE OXIMETER. VSS. PATIENT DRESSINGS TO ABDOMEN IS WITH LEFT LATERAL SMALL BLOODY DRAINAGE. COLOSTOMY AND TIFFANIE SITES ARE CDI. CARE TURNED OVER TO TONI ADAMS. Addendum: 04/05/21 at 1210 by Lambert Jacobson RN, RN Amended: Links added.
--- NOTE | 2021-04-05 12:16 | NUR ---
Patient just arrived in her room accompanied by BRYAN Verdin STUDENT DEVELOPMENT ADVISOR. Per Lambert RN, he spoke to the anesthesiologist to clarify the order for CPAP/BIPAP. Lambert confirmed to me that patient only need CPAP/BPAP PRN not continuous due to sleep apnea issue
[2021-04-05] MEDS: HYDROmorphone inj. 0.5 MG/0.5 ML DISP.SYRIN IV PRN ×2 (14:07→17:43)
--- NOTE | 2021-04-05 18:40 | NUR ---
Problems reprioritized. Patient report given, questions answered & plan of care reviewed with Michelle ADAMS.
[2021-04-05] MEDS: morphine 2 MG/ML inj. syringe IV PRN (20:43)
[2021-04-05] MEDS ORDERED: magnesium Cl slow-release 64mg tablet PO PRN (23:40)
[2021-04-05] MEDS ORDERED: potassium Cl 20 mEq SR tablet PO PRN ×2 (23:40)
[2021-04-05] MEDS ORDERED: magnesium 4gm in 100ml NS 100 ML IV PRN (23:40)
[2021-04-05] MEDS ORDERED: potassium CL 10mEq/100ml bag 100 ML IV PRN (23:40)
[2021-04-05] MEDS ORDERED: magnesium 2GM in 50ml NS 50 ML IV PRN (23:40)
[2021-04-06] VITALS: BP 105/65
[2021-04-06] MEDS: HYDROmorphone inj. 0.5 MG/0.5 ML DISP.SYRIN IV PRN ×2 (02:07→09:49)
[2021-04-06] MEDS ORDERED: ringers solution, lacted 1,000 ML IV ONE (02:40)
--- NOTE | 2021-04-06 02:40 | NUR ---
Pt's uop low at 140 ml for the 8 hr period.Pt bladder scanned for 3ml.Dr Shrestha notified and an order for a LR 1000 ml obtained and treatment administered.Pt's engel catheter put out 75ml 2 hours.Will continue to monitor.
[2021-04-06] MEDS: albuterol 2.5 MG/3 ML nebule NEB SCH ×4 (03:07→21:00)
[2021-04-06 03:45] VITALS: BP 133/79
[2021-04-06] MEDS: ondansetron/PF 4mg/2ml inj IV PRN ×4 (04:35→21:55)
[2021-04-06] MEDS: normal saline 1000ml 1,000 ML IV SCH ×2 (05:20→15:23)
[2021-04-06] MEDS: morphine 2 MG/ML inj. syringe IV PRN (05:31)
[2021-04-06 06:08] LABS: MAGNESIUM 1.8 MG/DL (1.5-2.4); POTASSIUM 4.1 MMOL/L (3.5-5.1)
--- NOTE | 2021-04-06 06:30 | NUR ---
Patient in room [facility] 354. I have received report from Michelle ADAMS and had the opportunity to ask questions and assume patient care.
--- NOTE | 2021-04-06 06:35 | NUR ---
Hand off report given to Bahman ADAMS
[2021-04-06 07:22] VITALS: BP 131/83
[2021-04-06] MEDS: K and/or MAG REPLACEMENT MC SCH ×6 (08:00→20:00)
[2021-04-06] MEDS: metroNIDAZOLE-Flagyl 500mg/NS 100 ML IV SCH ×2 (08:16→16:21)
[2021-04-06] MEDS: montelukast 10mg tablet PO SCH (08:19)
[2021-04-06] MEDS: HYDROcodone/acetaminophen 10/325mg tab PO PRN ×3 (08:19→19:13)
[2021-04-06] MEDS: lactobacillus rhamnosus 10,000 MMU CELLS/CAPSULE PO SCH ×2 (08:20→19:13)
[2021-04-06] MEDS: duloxetine 30mg CAPSULE.DR PO SCH ×2 (08:20→19:11)
[2021-04-06] MEDS: theophylline anhydrous 100mg ER capsule 24-hour PO SCH ×2 (08:20→19:11)
[2021-04-06] MEDS: TERBUTALINE 2.5 MG PO SCH ×2 (08:21→19:11)
[2021-04-06] MEDS: pregabalin 25mg capsule PO SCH ×2 (08:22→19:11)
[2021-04-06] MEDS: pregabalin 75mg capsule PO SCH ×2 (08:22→19:12)
[2021-04-06] MEDS: famotidine 20mg tablet PO SCH (08:22)
[2021-04-06] MEDS: heparin, porcine 5000 units/ml vial SQ SCH ×2 (08:23→16:22)
[2021-04-06] MEDS: ciprofloxacin lact 400MG/200ML 200 ML IV SCH ×2 (09:49→19:07)
[2021-04-06] MEDS: budesonide 0.5mg/2ml UD nebule IH SCH ×2 (10:10→21:00)
[2021-04-06] MEDS: VANCOmycin 1250MG/NS 250ml Bag 250 ML IV SCH ×2 (11:48→23:18)
[2021-04-06 12:00] VITALS: BP 114/70
[2021-04-06] MEDS: mag hydrox/Alum hydrox/simeth 30ml oral suspension PO PRN (13:59)
--- NOTE | 2021-04-06 16:29 | NUR ---
PAGER ID: [phone] MESSAGE: Bahman Surg [phone] RE: [phone] Diana Monzon Patient is still experiencing Nausea after Zofran, is there anything you would like to add to her medications thanks Bahman.
[2021-04-06] MEDS: proCHLORperazine 10 MG/2 ml inj IV SCH (16:42)
[2021-04-06] MEDS ORDERED: ketorolac tromethamine 15mg/ml inj. IV PRN (17:30)
--- NOTE | 2021-04-06 18:31 | NUR ---
Problems reprioritized. Patient report given, questions answered & plan of care reviewed with CANDIDA ADAMS.
[2021-04-06 20:00] VITALS: BP 145/90
[2021-04-06] MEDS ORDERED: pantoprazole 40MG/D5 100ML BAG 100 ML IV SCH (20:00)
[2021-04-06] MEDS: pantoprazole 40MG/NS 100ML BAG 100 ML IV SCH (20:36)
[2021-04-06] MEDS: proCHLORperazine 10 MG/2 ml inj IV PRN (23:06)
[2021-04-07] VITALS: BP 136/93
[2021-04-07] MEDS: HYDROcodone/acetaminophen 5mg/325mg tablet PO PRN ×2 (00:49→19:46)
[2021-04-07] MEDS: temazepam 15mg capsule PO PRN ×2 (00:49→23:38)
[2021-04-07] MEDS: heparin, porcine 5000 units/ml vial SQ SCH ×4 (00:50→23:40)
[2021-04-07] MEDS: metroNIDAZOLE-Flagyl 500mg/NS 100 ML IV SCH ×4 (00:56→23:38)
[2021-04-07] MEDS: normal saline 1000ml 1,000 ML IV SCH ×3 (01:20→18:22)
[2021-04-07] MEDS: albuterol 2.5 MG/3 ML nebule NEB SCH ×4 (02:19→20:38)
--- NOTE | 2021-04-07 06:37 | NUR ---
Patient in room [facility] 354. I have received report from BRYAN Martinez and had the opportunity to ask questions and assume patient care.
--- NOTE | 2021-04-07 06:47 | NUR ---
Gave report to Stefanie ADAMS
[2021-04-07 07:00] VITALS: BP 115/76
[2021-04-07] MEDS: HYDROmorphone inj. 0.5 MG/0.5 ML DISP.SYRIN IV PRN (07:02)
[2021-04-07] MEDS: proCHLORperazine 10 MG/2 ml inj IV PRN (07:02)
[2021-04-07] MEDS: pantoprazole 40MG/NS 100ML BAG 100 ML IV SCH ×2 (07:10→22:36)
[2021-04-07] MEDS: TERBUTALINE 2.5 MG PO SCH ×2 (07:12→20:03)
[2021-04-07] MEDS: theophylline anhydrous 100mg ER capsule 24-hour PO SCH ×2 (07:12→19:58)
[2021-04-07] MEDS: lactobacillus rhamnosus 10,000 MMU CELLS/CAPSULE PO SCH ×2 (07:13→20:10)
[2021-04-07] MEDS: montelukast 10mg tablet PO SCH (07:13)
[2021-04-07] MEDS: pregabalin 75mg capsule PO SCH ×2 (07:13→20:19)
[2021-04-07] MEDS: pregabalin 25mg capsule PO SCH ×2 (07:13→20:19)
[2021-04-07] MEDS: duloxetine 30mg CAPSULE.DR PO SCH ×2 (07:13→20:09)
[2021-04-07] MEDS: K and/or MAG REPLACEMENT MC SCH ×4 (08:00→20:00)
[2021-04-07] MEDS: ciprofloxacin lact 400MG/200ML 200 ML IV SCH ×2 (09:05→20:06)
[2021-04-07] MEDS: budesonide 0.5mg/2ml UD nebule IH SCH ×2 (09:17→20:38)
[2021-04-07] MEDS: VANCOmycin 1250MG/NS 250ml Bag 250 ML IV SCH (12:03)
[2021-04-07 12:13] LABS: BASOPHILS % (AUTO) 0.1 % (0-1); EOSINOPHILS % (AUTO) 0 % (0-6); HEMATOCRIT 33.2 % (35.0-45.0); LYMPHOCYTES # (AUTO) 0.7 X10'3 (1.1-4.8); LYMPHOCYTES % (AUTO) 3.2 % (21-51); MEAN CORPUSCULAR HGB CONC 33.2 g/dL (33.0-36.5); MEAN CORPUSCULAR VOLUME 87.3 FL (78-98); MEAN PLATELET VOLUME 7.7 FL (7.4-10.4); MONOCYTES # (AUTO) 0.7 X10'3 (0-0.9); MONOCYTES % (AUTO) 3.4 % (2-12); NEUTROPHILS # (AUTO) 19.5 X10'3 (1.8-7.7); NEUTROPHILS % (AUTO) 93.3 % (42-75); PLATELET COUNT 357 X10'3 (140-440); RED CELL DISTRIBUTION WIDTH 14.7 % (11.5-14.5); WHITE BLOOD COUNT 20.9 X10'3 (4.5-11.0)
[2021-04-07 12:19] LABS: CREATININE 1.23 MG/DL (0.40-0.90); eGFR 46 ML/MIN
--- NOTE | 2021-04-07 12:23 | NUR ---
Dr. Hill in to see patient and notified that patient BP is 94/57 and has had 200ml output. New orders to increase NS @ 100 to 150ml/hr.
[2021-04-07 12:27] VITALS: BP 94/59
--- NOTE | 2021-04-07 14:53 | NUR ---
Reassessment: Pt currently NPO allowed popsicles and ice chips s/p sigmoid resection and colostomy placement 04/05. Pt previously PO 71% avg clears/full liquid diets 03/31-04/04 though now day 8 insufficient diet order vs NPO status this admit not meeting needs. RD d/w RN regarding TPN if restrictive diet vs NPO status to persist post-op per surgeon discretion. Given poor nutrition status day 8, mild weakness, and BLE +1 edema pt meets minimum non-severe malnutrition criteria; MD notified. RD also d/w RN regarding CMP if MD agreeable given last 04/04 per EMR. LBM 04/05 large prior to colostomy placement w/ -80ml output past 24 hours per EMR. Pt taking PO meds without bowel regimen at this time and persistent Ileus per surgeon note. Pt would benefit from Colostomy diet ed once diet advances post-op. Will continue to monitor for further nutrition intervention needs. Recommendations: 1) Advance to low fiber diet as medically indicated post-op 2) Consider TPN given day 8 poor nutrition status currently NPO w/ prior NPO vs restrictive liquids diet this admit 3) Bowel care per MD; taking PO meds including probiotic post-op 4) Scaled weight this admit; weekly scaled weights thereafter 5) Colostomy diet ed following diet advancement post-op Addendum: 04/07/21 at [address] Amended: Links added.
--- NOTE | 2021-04-07 14:59 | NUR ---
Received call from global transportation managerloly Das regarding concern patient has been NPO since 04/04. Dr. Cazares was in room to see patient and let Dr. Cazares know. No new orders.
[2021-04-07 15:51] LABS: ALANINE AMINOTRANSFERASE 13 U/L (12-78); ALBUMIN 1.8 G/DL (3.4-5.0); ALBUMIN/GLOBULIN RATIO 0.5 (1.1-1.5); ALKALINE PHOSPHATASE 81 IU/L (46-116); ANION GAP 10 (8-16); ASPARTATE AMINO TRANSFERASE 17 U/L (10-37); BILIRUBIN,TOTAL 0.4 MG/DL (0.1-1.0); BLOOD UREA NITROGEN 20 MG/DL (7-18); BUN/CREATININE RATIO 16.9 (6.6-38.0); CALCIUM 8.3 MG/DL (8.5-10.1); CHLORIDE 105 MMOL/L (99-107); CREATININE 1.18 MG/DL (0.40-0.90); GLUCOSE 109 MG/DL (70-104); POTASSIUM 3.7 MMOL/L (3.5-5.1); SODIUM 139 MMOL/L (135-145); TOTAL CARBON DIOXIDE 23.6 MMOL/L (24-32); TOTAL PROTEIN 5.8 G/DL (6.4-8.2); eGFR 48 ML/MIN
[2021-04-07] MEDS: proCHLORperazine 10 MG/2 ml inj IV SCH (16:35)
[2021-04-07 18:00] VITALS: BP 120/72
--- NOTE | 2021-04-07 18:15 | NUR ---
Problems reprioritized. Patient report given, questions answered & plan of care reviewed with BRYAN Martinez.
[2021-04-07 21:45] LABS: VANCOMYCIN,TROUGH 22.7 UG/ML (6.0-14.0)
[2021-04-07 21:52] LABS: eGFR 53 ML/MIN
[2021-04-07] MEDS ORDERED: MESSAGE TO NURSING IV ONE (22:00)
[2021-04-07] MEDS ORDERED: VANCOMYCIN LEVEL IV ONE (22:30)
[2021-04-07] MEDS: ondansetron/PF 4mg/2ml inj IV PRN (23:38)
[2021-04-07 23:56] VITALS: BP 128/76
[2021-04-08] MEDS ORDERED: vancomycin/NS 1 GM ADD-VANTAGE 250 ML IV ONE
[2021-04-08] MEDS: normal saline 1000ml 1,000 ML IV SCH ×4 (01:04→21:20)
[2021-04-08] MEDS: albuterol 2.5 MG/3 ML nebule NEB SCH ×4 (02:02→20:47)
[2021-04-08] MEDS: HYDROmorphone inj. 0.5 MG/0.5 ML DISP.SYRIN IV PRN ×4 (04:13→20:46)
[2021-04-08 06:16] LABS: HEMOGLOBIN 10.1 g/dl (12.0-16.0); MEAN PLATELET VOLUME 8.3 FL (7.4-10.4); NEUTROPHILS # (AUTO) 17.1 X10'3 (1.8-7.7)
[2021-04-08 06:18] LABS: BASOPHILS % (AUTO) 0.1 % (0-1); EOSINOPHILS % (AUTO) 0.2 % (0-6); HEMATOCRIT 30.4 % (35.0-45.0); LYMPHOCYTES # (AUTO) 0.6 X10'3 (1.1-4.8); LYMPHOCYTES % (AUTO) 3.4 % (21-51); MEAN CORPUSCULAR HGB CONC 33.3 g/dL (33.0-36.5); MEAN CORPUSCULAR VOLUME 87.1 FL (78-98); MONOCYTES # (AUTO) 0.6 X10'3 (0-0.9); MONOCYTES % (AUTO) 3.3 % (2-12); PLATELET COUNT 344 X10'3 (140-440); RED BLOOD COUNT 3.49 X10'6 (4.20-5.60); RED CELL DISTRIBUTION WIDTH 14.4 % (11.5-14.5); WHITE BLOOD COUNT 18.4 X10'3 (4.5-11.0)
--- NOTE | 2021-04-08 06:20 | NUR ---
Patient in room [facility] 354. I have received report from BRYAN TIRADO and had the opportunity to ask questions and assume patient care.
--- NOTE | 2021-04-08 06:21 | NUR ---
Problems re-prioritized,plan of care reviewed ,report given to Stefanie ADAMS
[2021-04-08 06:57] LABS: CREATININE 0.92 MG/DL (0.40-0.90); eGFR 65 ML/MIN
[2021-04-08 07:00] VITALS: BP 138/83
[2021-04-08] MEDS: pregabalin 75mg capsule PO SCH ×2 (07:08→19:19)
[2021-04-08] MEDS: pregabalin 25mg capsule PO SCH ×2 (07:09→19:18)
[2021-04-08] MEDS: TERBUTALINE 2.5 MG PO SCH ×2 (07:09→19:19)
[2021-04-08] MEDS: duloxetine 30mg CAPSULE.DR PO SCH ×2 (07:09→19:19)
[2021-04-08] MEDS: pantoprazole 40MG/NS 100ML BAG 100 ML IV SCH ×2 (07:09→20:46)
[2021-04-08] MEDS: lactobacillus rhamnosus 10,000 MMU CELLS/CAPSULE PO SCH ×2 (07:09→19:19)
[2021-04-08] MEDS: montelukast 10mg tablet PO SCH (07:09)
[2021-04-08] MEDS: theophylline anhydrous 100mg ER capsule 24-hour PO SCH ×2 (07:09→19:18)
[2021-04-08] MEDS: heparin, porcine 5000 units/ml vial SQ SCH ×2 (07:10→15:10)
[2021-04-08] MEDS: metroNIDAZOLE-Flagyl 500mg/NS 100 ML IV SCH ×2 (07:16→15:10)
[2021-04-08 07:56] LABS: TOTAL CELLS COUNTED 100
[2021-04-08 07:57] LABS: GIANT PLATELET FEW; PLATELET ESTIMATE NORMAL
[2021-04-08] MEDS: K and/or MAG REPLACEMENT MC SCH ×2 (08:00→20:00)
[2021-04-08] MEDS: budesonide 0.5mg/2ml UD nebule IH SCH ×2 (08:04→20:47)
[2021-04-08] MEDS: ciprofloxacin lact 400MG/200ML 200 ML IV SCH ×2 (09:08→19:18)
[2021-04-08 11:10] VITALS: BP 109/56
[2021-04-08] MEDS: VANCOmycin 1250MG/NS 250ml Bag 250 ML IV SCH ×2 (11:16→23:01)
[2021-04-08] MEDS: proCHLORperazine 10 MG/2 ml inj IV SCH (16:04)
--- NOTE | 2021-04-08 18:22 | NUR ---
Problems reprioritized. Patient report given, questions answered & plan of care reviewed with BRYAN Martinez.
[2021-04-08 20:00] VITALS: BP 137/84
[2021-04-08] MEDS: diatr meglu/diatrizoate 30ml oral sol.-(3 dose) bottle PO SCH (22:58)
[2021-04-09] VITALS: BP 127/83
[2021-04-09] MEDS: heparin, porcine 5000 units/ml vial SQ SCH ×4 (00:16→23:54)
[2021-04-09] MEDS: metroNIDAZOLE-Flagyl 500mg/NS 100 ML IV SCH ×2 (00:16→07:45)
[2021-04-09] MEDS: ondansetron/PF 4mg/2ml inj IV PRN (00:25)
[2021-04-09] MEDS: temazepam 15mg capsule PO PRN (01:04)
[2021-04-09] MEDS: albuterol 2.5 MG/3 ML nebule NEB SCH ×4 (02:02→19:51)
[2021-04-09] MEDS: normal saline 1000ml 1,000 ML IV SCH ×3 (03:42→17:02)
[2021-04-09 06:17] LABS: CREATININE 0.83 MG/DL (0.40-0.90); eGFR 73 ML/MIN
[2021-04-09 07:00] VITALS: BP 146/87
[2021-04-09] MEDS: diatr meglu/diatrizoate 30ml oral sol.-(3 dose) bottle PO SCH ×2 (07:45→11:14)
[2021-04-09] MEDS: TERBUTALINE 2.5 MG PO SCH ×3 (07:59→20:12)
[2021-04-09] MEDS: lactobacillus rhamnosus 10,000 MMU CELLS/CAPSULE PO SCH ×2 (08:00→20:14)
[2021-04-09] MEDS: montelukast 10mg tablet PO SCH (08:00)
[2021-04-09] MEDS: theophylline anhydrous 100mg ER capsule 24-hour PO SCH ×3 (08:00→20:13)
[2021-04-09] MEDS: pregabalin 25mg capsule PO SCH ×3 (08:00→20:13)
[2021-04-09] MEDS: K and/or MAG REPLACEMENT MC SCH ×2 (08:00→20:00)
[2021-04-09] MEDS: duloxetine 30mg CAPSULE.DR PO SCH ×2 (08:00→20:12)
[2021-04-09] MEDS: pregabalin 75mg capsule PO SCH ×3 (08:00→20:12)
[2021-04-09] MEDS: budesonide 0.5mg/2ml UD nebule IH SCH ×2 (08:04→19:51)
--- NOTE | 2021-04-09 09:26 | NUR ---
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 leah [phone]
[2021-04-09] MEDS: HYDROmorphone inj. 0.5 MG/0.5 ML DISP.SYRIN IV PRN (09:41)
[2021-04-09] MEDS: ciprofloxacin lact 400MG/200ML 200 ML IV SCH (09:49)
[2021-04-09] MEDS: pantoprazole 40MG/NS 100ML BAG 100 ML IV SCH ×2 (11:13→20:10)
[2021-04-09 12:00] VITALS: BP 159/101
[2021-04-09 12:30] VITALS: BP 123/73
[2021-04-09] MEDS: meropenem inj 1 GM in normal saline 100ml IV soln 100 ML IV SCH ×3 (13:12→23:54)
[2021-04-09] MEDS: DAPTOmycin inj. 700 MG in normal saline 100ml IV soln 100 ML IV SCH (14:42)
[2021-04-09 16:25] LABS: BASOPHILS % (AUTO) 0.1 % (0-1); EOSINOPHILS # (AUTO) 0.1 X10'3 (0-0.9); EOSINOPHILS % (AUTO) 0.6 % (0-6); HEMATOCRIT 32.5 % (35.0-45.0); HEMOGLOBIN 10.9 g/dl (12.0-16.0); LYMPHOCYTES # (AUTO) 0.8 X10'3 (1.1-4.8); LYMPHOCYTES % (AUTO) 4.6 % (21-51); MEAN CORPUSCULAR HEMOGLOBIN 28.8 PG (27.0-31.0); MEAN CORPUSCULAR HGB CONC 33.5 g/dL (33.0-36.5); MEAN CORPUSCULAR VOLUME 85.7 FL (78-98); MEAN PLATELET VOLUME 8.5 FL (7.4-10.4); MONOCYTES # (AUTO) 0.9 X10'3 (0-0.9); MONOCYTES % (AUTO) 5.7 % (2-12); NEUTROPHILS # (AUTO) 14.7 X10'3 (1.8-7.7); PLATELET COUNT 368 X10'3 (140-440); RED BLOOD COUNT 3.79 X10'6 (4.20-5.60); RED CELL DISTRIBUTION WIDTH 13.9 % (11.5-14.5); WHITE BLOOD COUNT 16.6 X10'3 (4.5-11.0)
[2021-04-09] MEDS: proCHLORperazine 10 MG/2 ml inj IV SCH (16:35)
--- NOTE | 2021-04-09 16:36 | NUR ---
LINKED MED NOTE: MEROPENEM @ 1600 ADVISED FROM PHARMACIST TO HOLD THIS DOSE SINCE THE LAST ONE WAS GIVEN LATE.
[2021-04-09 16:41] LABS: ALANINE AMINOTRANSFERASE 9 U/L (12-78); ALBUMIN 1.6 G/DL (3.4-5.0); ALBUMIN/GLOBULIN RATIO 0.4 (1.1-1.5); ALKALINE PHOSPHATASE 78 IU/L (46-116); ANION GAP 10 (8-16); ASPARTATE AMINO TRANSFERASE 13 U/L (10-37); BILIRUBIN,TOTAL 0.3 MG/DL (0.1-1.0); BLOOD UREA NITROGEN 10 MG/DL (7-18); CHLORIDE 106 MMOL/L (99-107); CREATININE 0.91 MG/DL (0.40-0.90); GLUCOSE 110 MG/DL (70-104); POTASSIUM 3.2 MMOL/L (3.5-5.1); SODIUM 139 MMOL/L (135-145); TOTAL CARBON DIOXIDE 23.1 MMOL/L (24-32); TOTAL PROTEIN 5.2 G/DL (6.4-8.2); eGFR 65 ML/MIN
[2021-04-09] MEDS: HYDROcodone/acetaminophen 10/325mg tab PO PRN (16:50)
[2021-04-09 17:04] LABS: TOTAL CELLS COUNTED 100
[2021-04-09 18:03] LABS: ANISOCYTOSIS FEW; LARGE PLATELETS FEW; PLATELET ESTIMATE NORMAL; POLYCHROMASIA FEW
[2021-04-09 18:04] LABS: TOXIC GRANULATION 1+
--- NOTE | 2021-04-09 18:36 | NUR ---
Problems reprioritized. Patient report given, questions answered & plan of care reviewed with BRYAN Martinez.
[2021-04-09 20:00] VITALS: BP 103/50
[2021-04-10] VITALS: BP 140/66
[2021-04-10] MEDS: normal saline 1000ml 1,000 ML IV SCH ×5 (00:06→23:55)
[2021-04-10] MEDS ORDERED: potassium Cl 20 mEq SR tablet PO PRN (02:30)
[2021-04-10] MEDS: albuterol 2.5 MG/3 ML nebule NEB SCH ×4 (02:55→20:32)
[2021-04-10] MEDS: HYDROmorphone inj. 0.5 MG/0.5 ML DISP.SYRIN IV PRN ×2 (06:25→20:22)
[2021-04-10 06:37] LABS: BASOPHILS % (AUTO) 0.2 % (0-1); EOSINOPHILS # (AUTO) 0.2 X10'3 (0-0.9); EOSINOPHILS % (AUTO) 1.2 % (0-6); HEMATOCRIT 31.3 % (35.0-45.0); HEMOGLOBIN 10.4 g/dl (12.0-16.0); LYMPHOCYTES # (AUTO) 0.9 X10'3 (1.1-4.8); LYMPHOCYTES % (AUTO) 5.7 % (21-51); MEAN CORPUSCULAR HEMOGLOBIN 28.5 PG (27.0-31.0); MEAN CORPUSCULAR HGB CONC 33.2 g/dL (33.0-36.5); MEAN CORPUSCULAR VOLUME 85.9 FL (78-98); MEAN PLATELET VOLUME 8.5 FL (7.4-10.4); MONOCYTES # (AUTO) 0.8 X10'3 (0-0.9); MONOCYTES % (AUTO) 5.5 % (2-12); NEUTROPHILS # (AUTO) 13.4 X10'3 (1.8-7.7); NEUTROPHILS % (AUTO) 87.4 % (42-75); PLATELET COUNT 358 X10'3 (140-440); RED BLOOD COUNT 3.64 X10'6 (4.20-5.60); RED CELL DISTRIBUTION WIDTH 13.9 % (11.5-14.5); WHITE BLOOD COUNT 15.4 X10'3 (4.5-11.0)
[2021-04-10 06:47] LABS: ALANINE AMINOTRANSFERASE 7 U/L (12-78); ALBUMIN 1.4 G/DL (3.4-5.0); ALBUMIN/GLOBULIN RATIO 0.4 (1.1-1.5); ALKALINE PHOSPHATASE 73 IU/L (46-116); ANION GAP 10 (8-16); ASPARTATE AMINO TRANSFERASE 14 U/L (10-37); BILIRUBIN,TOTAL 0.3 MG/DL (0.1-1.0); BLOOD UREA NITROGEN 7 MG/DL (7-18); BUN/CREATININE RATIO 8.2 (6.6-38.0); CALCIUM 7.7 MG/DL (8.5-10.1); CHLORIDE 107 MMOL/L (99-107); CREATININE 0.85 MG/DL (0.40-0.90); GLUCOSE 98 MG/DL (70-104); SODIUM 140 MMOL/L (135-145); TOTAL CARBON DIOXIDE 22.9 MMOL/L (24-32); TOTAL PROTEIN 4.8 G/DL (6.4-8.2); eGFR 71 ML/MIN
[2021-04-10 06:51] LABS: POTASSIUM 2.9 MMOL/L (3.5-5.1)
[2021-04-10] MEDS ORDERED: potassium Cl 20 mEq SR tablet PO STA (06:52)
[2021-04-10 07:00] VITALS: BP 147/87
--- NOTE | 2021-04-10 07:22 | NUR ---
Patient in room [facility] 352. I have received report from Michelle ADAMS and had the opportunity to ask questions and assume patient care.
[2021-04-10] MEDS: budesonide 0.5mg/2ml UD nebule IH SCH ×2 (07:30→20:32)
[2021-04-10 07:56] LABS: TOTAL CELLS COUNTED 100
[2021-04-10 07:57] LABS: ANISOCYTOSIS FEW; LARGE PLATELETS FEW; PLATELET ESTIMATE NORMAL
[2021-04-10 07:58] LABS: HYPERSEGMENTED NEUTROPHILS FEW; TOXIC GRANULATION 1+
[2021-04-10] MEDS: K and/or MAG REPLACEMENT MC SCH ×2 (08:00→20:00)
[2021-04-10] MEDS: montelukast 10mg tablet PO SCH (09:18)
[2021-04-10] MEDS: theophylline anhydrous 100mg ER capsule 24-hour PO SCH ×2 (09:18→19:37)
[2021-04-10] MEDS: TERBUTALINE 2.5 MG PO SCH ×2 (09:19→19:37)
[2021-04-10] MEDS: duloxetine 30mg CAPSULE.DR PO SCH ×2 (09:19→19:38)
[2021-04-10] MEDS: pantoprazole 40MG/NS 100ML BAG 100 ML IV SCH ×2 (09:20→19:36)
[2021-04-10] MEDS: heparin, porcine 5000 units/ml vial SQ SCH ×3 (09:20→23:42)
[2021-04-10] MEDS: meropenem inj 1 GM in normal saline 100ml IV soln 100 ML IV SCH ×3 (09:20→23:39)
[2021-04-10] MEDS: lactobacillus rhamnosus 10,000 MMU CELLS/CAPSULE PO SCH ×2 (09:21→19:38)
[2021-04-10] MEDS: pregabalin 25mg capsule PO SCH ×2 (09:24→19:37)
[2021-04-10] MEDS: pregabalin 75mg capsule PO SCH ×2 (09:24→19:38)
[2021-04-10] MEDS: HYDROcodone/acetaminophen 10/325mg tab PO PRN ×2 (10:36→15:04)
[2021-04-10] MEDS: DAPTOmycin inj. 700 MG in normal saline 100ml IV soln 100 ML IV SCH (11:03)
[2021-04-10 12:00] VITALS: BP 148/73
--- NOTE | 2021-04-10 12:47 | NUR ---
OSTOMY FACTS: Almost everyone has know of, or met, businessmen, entertainers, athletes, and people from all walks of life who have an ostomy. Ostomates (a person that has an ostomy) can ski, ride horses, bowl, and get healthy exercise in countless ways. Your usual activities of daily living can be resumed as soon as you are able. Gradually you will be able to wear the clothes worn before surgery. With modern pouches, nothing is noticeable under your clothing. It may be difficult at first to believe that an intimate relationship can be possible when one's body has been disfigured by surgery. This is not true. Love, fortunately, is not easily destroyed when it is based on genuine appreciation of a person as a thinking, feeling, reacting human being. AN OSTOMY IS NOT AN IMPAIRMENT!! DEFINITIONS: 1.OSTOMY: An opening that is created by a surgical procedure. The opening is called a "stoma". 2.STOMA: A surgical opening in the abdomen (belly) where intestine is brought through the abdominal wall and connected at the skin level. A stoma is shiny, wet and at first is dark purple but eventually turns pink, similar to the inside lining of your mouth. 3.COLON: A portion of the large bowel. 4.COLOSTOMY: A fecal diversion with an opening, (stoma) created anywhere along the colon. Making a connection between the colon and the abdominal wall. 5.ILLEOSTOMY: A fecal diversion with an opening, (stoma) created in the small intestine. Making a connection between the small intestine and the abdominal wall. 6.UROSTOMY: A urinary diversion with the ureters connected to a segment of the small bowel and one end is brought out and connected to the abdominal wall, creating a stoma. SHAPES and SIZES: "The stoma is usually round or oval. "It is anywhere from a dime to half dollar in size. "A stoma reaches its permanent size 6-8 weeks after surgery. PRODUCTS: 1.POUCH or APPLIANCE: An external device to contain stool or urine output and protect the skin around the stoma. It can be a one piece pouch or two pieces (a pouch and a wafer). 2.BARRIER: Substance that is used to protect the skin around the stoma from drainage and adhesive. 3.SKIN PREP or SEALANT: Product applied to the skin to reduce injury from moisture, drainage, or repeated pouch removal. Available in spray or wipes. 4.CLOSURE or CLAMP: A device used to close the bottom of a drainable pouch. 5.BRIDGE or ARELY: A piece of plastic placed under a loop of bowel on the skins surface, to secure the bowel in place while the skin heals. POUCH CHANGE PROCEEDURE: 1.Assemble all the supplies "1 or 2 piece appliance "Ostomy paste (if needed) "Ostomy powder (if needed) "Skin prep wipes ( not recommended with coloplast products) "Moist wash cloth or cotton balls 2.Remove plastic center and paper backing from pouch. If pouch or wafer is not precut, use the sizing guide, or plastic backing from pouch to make a pattern. Do this by placing the paper over the stoma and trace it, or draw a pattern. Cut the wafer to fit and set it aside. 3.Remove old pouch by lifting up on tape while pressing skin down away from the tape. If there is a clip on your pouch, remove it and save it. 4.Clean skin or stoma with moistened wash cloth or cotton balls. Place a clean cotton ball over stoma hole to catch any drainage. Let skin dry. 5.For grooves or uneven areas in the skin- apply ostomy paste and sprinkle with ostomy powder, then gently shape the past so the area around the stoma is smooth and as flat as possible. Wipe off or blow away excess. Blot powder with skin prep wipe (DO NOT wipe powder). Let dry until no longer sticky. 6.For irritated or reddened skin- sprinkle ostomy powder on red or irritated area. Wipe off or blow away excess. Blot powder with skin prep wipe (DO NOT wipe powder). Let dry until no longer sticky. 7.Apply skin prep wipe to skin to which the pouch and tape will adhere. Let dry until no longer sticky. 8.If you have a one piece appliance- apply pouch so it is centered around the stoma. No skin should be exposed to stool. All skin should be covered by paste or pouch. 9.If you have a two piece appliance- Apply the wafer as described above, then snap or stick pouch onto wafer. Check to make sure wafer and pouch are securely connected. 10.Place clip on bottom of pouch. 11.Empty pouch when 1/3 full. OSTOMY SKIN CARE: "Good health care and nutrition are essential for healthy skin. "Usually a correct pouch size will prevent skin breakdown. "Use warm water and soap for skin cleansing. "Do not use creams or oil based products on skin around the stoma. This will prevent the appliance from sticking. "Use skin prep around the stoma. IT CAN TAKE 24 HOURS TO SEVERAL DAYS FOR SKIN TO HEAL. IF IT IS NOT RESOLVING, OR GETTING WORSE, CALL YOUR PRIMARY CARE DOCTOR. Addendum: 04/10/21 at 1249 by Jeannine Lovelace RN Amended: Links added.
--- NOTE | 2021-04-10 14:34 | NUR ---
Reassessment: Diet has been advanced to clear liquids with breakfast being first meal since diet advancement, pending documentation of PO intake. Pt would benefit from nutrition support if expected to continue with insufficient diet order in view of prolonged poor nutrient intake since admit d/t NPO versus liquid diet throughout LOS. LBM 04/09, documented with 500 mL stool output per I&O. Will continue to follow closely and make recommendations as appropriate. Recommendations: 1) Advance to low fiber diet as medically indicated post-op 2) Consider nutrition support given day 11 poor nutrition status with NPO vs restrictive liquids diet throughout LOS 3) Bowel care per MD 4) Scaled weight this admit; weekly scaled weights thereafter 5) Colostomy diet ed following diet advancement post-op Addendum: 04/10/21 at [address] Amended: Links added.
[2021-04-10] MEDS: potassium Cl 20 mEq SR tablet PO PRN ×2 (16:41→20:29)
[2021-04-10 18:00] VITALS: BP 117/75
--- NOTE | 2021-04-10 18:31 | NUR ---
Patient in room [facility] 352. I have received report from Nkechi ADAMS and had the opportunity to ask questions and assume patient care.
--- NOTE | 2021-04-10 19:36 | NUR ---
Problems reprioritized. Patient report given, questions answered & plan of care reviewed with Marcia ADAMS.
[2021-04-10] MEDS: mag hydrox/Alum hydrox/simeth 30ml oral suspension PO PRN (23:39)
[2021-04-11] VITALS: BP 128/66
[2021-04-11] MEDS: albuterol 2.5 MG/3 ML nebule NEB SCH ×4 (02:39→20:43)
[2021-04-11] MEDS: HYDROcodone/acetaminophen 10/325mg tab PO PRN ×3 (05:39→23:43)
[2021-04-11 06:05] LABS: ALANINE AMINOTRANSFERASE 7 U/L (12-78); ALBUMIN 1.5 G/DL (3.4-5.0); ALBUMIN/GLOBULIN RATIO 0.4 (1.1-1.5); ALKALINE PHOSPHATASE 78 IU/L (46-116); ANION GAP 11 (8-16); ASPARTATE AMINO TRANSFERASE 13 U/L (10-37); BILIRUBIN,TOTAL 0.3 MG/DL (0.1-1.0); BLOOD UREA NITROGEN 6 MG/DL (7-18); BUN/CREATININE RATIO 7.1 (6.6-38.0); CALCIUM 7.7 MG/DL (8.5-10.1); CHLORIDE 106 MMOL/L (99-107); CREATININE 0.84 MG/DL (0.40-0.90); GLUCOSE 112 MG/DL (70-104); POTASSIUM 3.8 MMOL/L (3.5-5.1); SODIUM 138 MMOL/L (135-145); TOTAL CARBON DIOXIDE 20.7 MMOL/L (24-32); eGFR 72 ML/MIN
--- NOTE | 2021-04-11 06:31 | NUR ---
Problems reprioritized. Patient report given, questions answered & plan of care reviewed with Rosa ADAMS.
[2021-04-11 06:34] LABS: CREATININE 0.78 MG/DL (0.40-0.90); eGFR 78 ML/MIN
[2021-04-11 07:00] VITALS: BP 131/73
[2021-04-11] MEDS: K and/or MAG REPLACEMENT MC SCH ×2 (08:00→20:00)
[2021-04-11] MEDS: budesonide 0.5mg/2ml UD nebule IH SCH ×2 (08:25→20:43)
[2021-04-11] MEDS: pregabalin 75mg capsule PO SCH ×2 (08:41→19:28)
[2021-04-11] MEDS: pantoprazole 40MG/NS 100ML BAG 100 ML IV SCH ×2 (08:41→19:30)
[2021-04-11] MEDS: pregabalin 25mg capsule PO SCH ×2 (08:42→19:29)
[2021-04-11] MEDS: montelukast 10mg tablet PO SCH (08:43)
[2021-04-11] MEDS: duloxetine 30mg CAPSULE.DR PO SCH ×2 (08:43→19:28)
[2021-04-11] MEDS: theophylline anhydrous 100mg ER capsule 24-hour PO SCH ×2 (08:43→19:29)
[2021-04-11] MEDS: lactobacillus rhamnosus 10,000 MMU CELLS/CAPSULE PO SCH ×2 (08:44→19:29)
[2021-04-11] MEDS: heparin, porcine 5000 units/ml vial SQ SCH ×3 (08:45→23:43)
[2021-04-11] MEDS: TERBUTALINE 2.5 MG PO SCH ×2 (08:53→19:29)
[2021-04-11] MEDS: meropenem inj 1 GM in normal saline 100ml IV soln 100 ML IV SCH ×3 (09:57→23:41)
[2021-04-11] MEDS: HYDROmorphone inj. 0.5 MG/0.5 ML DISP.SYRIN IV PRN ×3 (11:41→21:24)
[2021-04-11] MEDS: normal saline 1000ml 1,000 ML IV SCH ×2 (11:42→13:03)
[2021-04-11] MEDS: DAPTOmycin inj. 700 MG in normal saline 100ml IV soln 100 ML IV SCH (11:44)
[2021-04-11 12:00] VITALS: BP 146/75
--- NOTE | 2021-04-11 18:21 | NUR ---
Patient in room [facility] 352. I have received report from Rosa ADAMS and had the opportunity to ask questions and assume patient care.
--- NOTE | 2021-04-11 19:03 | NUR ---
Report given to Marcia ADAMS, all questions answered. No current concerns. Pt resting comfortably
[2021-04-12] MEDS: ondansetron/PF 4mg/2ml inj IV PRN (01:36)
[2021-04-12] MEDS: HYDROmorphone inj. 0.5 MG/0.5 ML DISP.SYRIN IV PRN ×5 (02:04→22:04)
[2021-04-12] MEDS: albuterol 2.5 MG/3 ML nebule NEB SCH ×4 (02:15→21:10)
[2021-04-12] MEDS: normal saline 1000ml 1,000 ML IV SCH (05:47)
--- NOTE | 2021-04-12 06:53 | NUR ---
Problems reprioritized. Patient report given, questions answered & plan of care reviewed with Hina ADAMS.
[2021-04-12 06:59] LABS: ALANINE AMINOTRANSFERASE 7 U/L (12-78); ALBUMIN 1.5 G/DL (3.4-5.0); ALBUMIN/GLOBULIN RATIO 0.4 (1.1-1.5); ALKALINE PHOSPHATASE 76 IU/L (46-116); ANION GAP 10 (8-16); ASPARTATE AMINO TRANSFERASE 15 U/L (10-37); BILIRUBIN,TOTAL 0.3 MG/DL (0.1-1.0); BLOOD UREA NITROGEN 6 MG/DL (7-18); BUN/CREATININE RATIO 8.7 (6.6-38.0); CALCIUM 7.7 MG/DL (8.5-10.1); CHLORIDE 103 MMOL/L (99-107); CREATININE 0.69 MG/DL (0.40-0.90); GLUCOSE 98 MG/DL (70-104); POTASSIUM 3.5 MMOL/L (3.5-5.1); SODIUM 135 MMOL/L (135-145); TOTAL CARBON DIOXIDE 22.1 MMOL/L (24-32); eGFR 90 ML/MIN
[2021-04-12] MEDS: DAPTOmycin inj. 700 MG in normal saline 100ml IV soln 100 ML IV SCH (07:57)
[2021-04-12] MEDS: meropenem inj 1 GM in normal saline 100ml IV soln 100 ML IV SCH ×3 (07:57→23:56)
[2021-04-12] MEDS: pregabalin 75mg capsule PO SCH ×2 (07:57→21:05)
[2021-04-12] MEDS: pregabalin 25mg capsule PO SCH ×2 (07:57→21:06)
[2021-04-12] MEDS: pantoprazole 40MG/NS 100ML BAG 100 ML IV SCH ×2 (07:57→21:00)
[2021-04-12] MEDS: duloxetine 30mg CAPSULE.DR PO SCH ×2 (07:58→21:05)
[2021-04-12] MEDS: TERBUTALINE 2.5 MG PO SCH ×2 (07:58→21:00)
[2021-04-12] MEDS: lactobacillus rhamnosus 10,000 MMU CELLS/CAPSULE PO SCH ×2 (07:58→21:02)
[2021-04-12] MEDS: theophylline anhydrous 100mg ER capsule 24-hour PO SCH ×2 (07:58→21:03)
[2021-04-12] MEDS: montelukast 10mg tablet PO SCH (07:58)
[2021-04-12] MEDS: heparin, porcine 5000 units/ml vial SQ SCH ×2 (07:59→15:38)
[2021-04-12 08:00] VITALS: BP 135/80
[2021-04-12] MEDS: K and/or MAG REPLACEMENT MC SCH ×2 (08:22→20:00)
[2021-04-12] MEDS: budesonide 0.5mg/2ml UD nebule IH SCH ×2 (09:39→21:10)
[2021-04-12] MEDS: HYDROcodone/acetaminophen 10/325mg tab PO PRN ×3 (10:36→21:03)
[2021-04-12] MEDS: proCHLORperazine 10 MG/2 ml inj IV PRN ×2 (10:37→23:56)
[2021-04-12 12:00] VITALS: BP 162/89
--- NOTE | 2021-04-12 18:40 | NUR ---
Patient in room [facility] 352. I have received report from Hina ADAMS and had the opportunity to ask questions and assume patient care.
[2021-04-12 19:00] VITALS: BP 137/78
[2021-04-12 20:50] LABS: BASOPHILS # (AUTO) 0.1 X10'3 (0-0.2); BASOPHILS % (AUTO) 0.3 % (0-1); EOSINOPHILS # (AUTO) 0.2 X10'3 (0-0.9); EOSINOPHILS % (AUTO) 0.9 % (0-6); HEMATOCRIT 30.8 % (35.0-45.0); HEMOGLOBIN 10.4 g/dl (12.0-16.0); LYMPHOCYTES % (AUTO) 5.8 % (21-51); MEAN CORPUSCULAR HEMOGLOBIN 28.7 PG (27.0-31.0); MEAN CORPUSCULAR HGB CONC 33.8 g/dL (33.0-36.5); MEAN CORPUSCULAR VOLUME 84.9 FL (78-98); MEAN PLATELET VOLUME 9.2 FL (7.4-10.4); MONOCYTES # (AUTO) 1.1 X10'3 (0-0.9); MONOCYTES % (AUTO) 6.4 % (2-12); NEUTROPHILS % (AUTO) 86.6 % (42-75); PLATELET COUNT 502 X10'3 (140-440); RED BLOOD COUNT 3.62 X10'6 (4.20-5.60); RED CELL DISTRIBUTION WIDTH 13.7 % (11.5-14.5); WHITE BLOOD COUNT 17.4 X10'3 (4.5-11.0)
[2021-04-12 20:55] LABS: ALBUMIN 1.5 G/DL (3.4-5.0); ANION GAP 9 (8-16); BLOOD UREA NITROGEN 5 MG/DL (7-18); BUN/CREATININE RATIO 7.2 (6.6-38.0); CALCIUM 7.9 MG/DL (8.5-10.1); CHLORIDE 99 MMOL/L (99-107); CREATININE 0.69 MG/DL (0.40-0.90); GLUCOSE 108 MG/DL (70-104); POTASSIUM 3.6 MMOL/L (3.5-5.1); SODIUM 131 MMOL/L (135-145); TOTAL CARBON DIOXIDE 23.4 MMOL/L (24-32); eGFR 90 ML/MIN
[2021-04-13] VITALS: BP 138/80
[2021-04-13] MEDS: heparin, porcine 5000 units/ml vial SQ SCH ×4 (00:09→23:30)
[2021-04-13] MEDS: HYDROcodone/acetaminophen 10/325mg tab PO PRN ×3 (02:12→21:00)
[2021-04-13] MEDS: normal saline 1000ml 1,000 ML IV SCH ×2 (02:13→23:26)
[2021-04-13] MEDS: albuterol 2.5 MG/3 ML nebule NEB SCH ×4 (02:31→20:07)
[2021-04-13] MEDS: HYDROmorphone inj. 0.5 MG/0.5 ML DISP.SYRIN IV PRN ×3 (05:27→17:13)
--- NOTE | 2021-04-13 06:35 | NUR ---
Problems reprioritized. Patient report given, questions answered & plan of care reviewed with Hina ADAMS.
[2021-04-13 06:36] LABS: BASOPHILS % (AUTO) 0.2 % (0-1); EOSINOPHILS # (AUTO) 0.1 X10'3 (0-0.9); EOSINOPHILS % (AUTO) 0.7 % (0-6); HEMATOCRIT 29.6 % (35.0-45.0); LYMPHOCYTES # (AUTO) 0.8 X10'3 (1.1-4.8); LYMPHOCYTES % (AUTO) 4.2 % (21-51); MEAN CORPUSCULAR HEMOGLOBIN 28.7 PG (27.0-31.0); MEAN CORPUSCULAR HGB CONC 33.8 g/dL (33.0-36.5); MEAN CORPUSCULAR VOLUME 84.8 FL (78-98); MEAN PLATELET VOLUME 9.1 FL (7.4-10.4); MONOCYTES # (AUTO) 1.3 X10'3 (0-0.9); MONOCYTES % (AUTO) 6.8 % (2-12); NEUTROPHILS # (AUTO) 16.6 X10'3 (1.8-7.7); NEUTROPHILS % (AUTO) 88.1 % (42-75); PLATELET COUNT 484 X10'3 (140-440); RED BLOOD COUNT 3.49 X10'6 (4.20-5.60); WHITE BLOOD COUNT 18.9 X10'3 (4.5-11.0)
[2021-04-13] MEDS: pantoprazole 40MG/NS 100ML BAG 100 ML IV SCH ×2 (07:19→21:04)
[2021-04-13 07:23] LABS: ALANINE AMINOTRANSFERASE 7 U/L (12-78); ALBUMIN 1.5 G/DL (3.4-5.0); ALBUMIN/GLOBULIN RATIO 0.4 (1.1-1.5); ALKALINE PHOSPHATASE 87 IU/L (46-116); ANION GAP 11 (8-16); ASPARTATE AMINO TRANSFERASE 20 U/L (10-37); BILIRUBIN,TOTAL 0.3 MG/DL (0.1-1.0); BLOOD UREA NITROGEN 4 MG/DL (7-18); BUN/CREATININE RATIO 6.3 (6.6-38.0); CALCIUM 7.6 MG/DL (8.5-10.1); CHLORIDE 101 MMOL/L (99-107); CREATININE 0.64 MG/DL (0.40-0.90); GLUCOSE 96 MG/DL (70-104); POTASSIUM 3.4 MMOL/L (3.5-5.1); SODIUM 135 MMOL/L (135-145); TOTAL PROTEIN 5.4 G/DL (6.4-8.2); eGFR > 90 ML/MIN
[2021-04-13] MEDS: pregabalin 75mg capsule PO SCH ×2 (07:37→21:00)
[2021-04-13] MEDS: theophylline anhydrous 100mg ER capsule 24-hour PO SCH ×2 (07:37→21:03)
[2021-04-13] MEDS: pregabalin 25mg capsule PO SCH ×2 (07:37→21:00)
[2021-04-13] MEDS: lactobacillus rhamnosus 10,000 MMU CELLS/CAPSULE PO SCH ×2 (07:38→21:01)
[2021-04-13] MEDS: ondansetron/PF 4mg/2ml inj IV PRN ×2 (07:39→13:41)
[2021-04-13] MEDS: montelukast 10mg tablet PO SCH (07:39)
[2021-04-13] MEDS: TERBUTALINE 2.5 MG PO SCH ×2 (07:39→21:02)
[2021-04-13] MEDS: DAPTOmycin inj. 700 MG in normal saline 100ml IV soln 100 ML IV SCH (07:39)
[2021-04-13] MEDS: duloxetine 30mg CAPSULE.DR PO SCH ×2 (07:39→21:03)
[2021-04-13] MEDS: meropenem inj 1 GM in normal saline 100ml IV soln 100 ML IV SCH ×3 (07:39→23:28)
[2021-04-13 08:00] VITALS: BP 96/65
[2021-04-13] MEDS: budesonide 0.5mg/2ml UD nebule IH SCH ×2 (09:00→20:07)
[2021-04-13] MEDS: proCHLORperazine 10 MG/2 ml inj IV PRN ×2 (10:16→15:36)
--- NOTE | 2021-04-13 11:55 | NUR ---
dr shin made aware in person of area of dehiscence on midline abd incision, VO obtained to remove the 1 staple at dehiscence
[2021-04-13 12:00] VITALS: BP 151/83
--- NOTE | 2021-04-13 12:02 | NUR ---
mesage to PT "please see [phone] Lund request "
--- NOTE | 2021-04-13 14:58 | NUR ---
Reassessment: Pt has been advanced to Full liquid diet 04/11 though continues w/ low PO, mostly 25-50% intake of meals not meeting needs. Per MD note, pt passing stools but not gas so diet will not be advanced yet. Recommend advancing diet as soon as medically feasible as pt has had inadequate intake since admission (14 days). No change to recommendations at this time, will continue to monitor. Recommendations: 1) Advance to low fiber diet as medically indicated post-op 2) Consider nutrition support given day 11 poor nutrition status with NPO vs restrictive liquids diet throughout LOS 3) Bowel care per MD 4) Scaled weight this admit; weekly scaled weights thereafter 5) Colostomy diet ed following diet advancement post-op Addendum: 04/13/21 at [address] Amended: Links added.
--- NOTE | 2021-04-13 16:52 | NUR ---
" message to dr solis PAGER ID: [phone] MESSAGE: k3.4 replacement orders . also pt very nauseous, perhaos efferk and iv replacement options. thanks ~Hina 1703 nargis"
--- NOTE | 2021-04-13 16:56 | NUR ---
dr solis returned page to give TO for K replacement
[2021-04-13] MEDS ORDERED: magnesium Cl slow-release 64mg tablet PO PRN (17:00)
[2021-04-13] MEDS ORDERED: magnesium 2GM in 50ml NS 50 ML IV PRN (17:00)
[2021-04-13] MEDS ORDERED: magnesium 4gm in 100ml NS 100 ML IV PRN (17:00)
[2021-04-13] MEDS ORDERED: potassium CL 10mEq/100ml bag 100 ML IV PRN (17:00)
[2021-04-13] MEDS ORDERED: potassium Cl 20 mEq SR tablet PO PRN ×2 (17:00)
[2021-04-13] MEDS ORDERED: POTASSIUM BICARB 20meq eff tab 20 MEQ TABLET.EFF PO PRN (17:04)
[2021-04-13] MEDS: POTASSIUM BICARB 20meq eff tab 20 MEQ TABLET.EFF PO PRN ×2 (17:13→21:03)
--- NOTE | 2021-04-13 18:20 | NUR ---
Patient in room [facility] 352. I have received report from Hina ADAMS and had the opportunity to ask questions and assume patient care.
[2021-04-13 19:00] VITALS: BP 151/56
[2021-04-13] MEDS: K and/or MAG REPLACEMENT MC SCH (21:20)
[2021-04-14] VITALS: BP 128/68
[2021-04-14] MEDS: albuterol 2.5 MG/3 ML nebule NEB SCH ×3 (03:00→13:51)
[2021-04-14] MEDS: POTASSIUM BICARB 20meq eff tab 20 MEQ TABLET.EFF PO PRN (04:28)
[2021-04-14] MEDS: HYDROcodone/acetaminophen 10/325mg tab PO PRN ×2 (05:51→17:40)
--- NOTE | 2021-04-14 06:51 | NUR ---
Problems reprioritized. Patient report given, questions answered & plan of care reviewed with Hina ADAMS.
[2021-04-14 07:00] VITALS: BP 123/64
[2021-04-14] MEDS: pantoprazole 40MG/NS 100ML BAG 100 ML IV SCH (07:49)
[2021-04-14] MEDS: meropenem inj 1 GM in normal saline 100ml IV soln 100 ML IV SCH ×2 (07:51→17:41)
[2021-04-14] MEDS: pregabalin 75mg capsule PO SCH (07:51)
[2021-04-14] MEDS: pregabalin 25mg capsule PO SCH (07:52)
[2021-04-14] MEDS: ondansetron/PF 4mg/2ml inj IV PRN ×2 (07:52→13:53)
[2021-04-14] MEDS: lactobacillus rhamnosus 10,000 MMU CELLS/CAPSULE PO SCH (07:52)
[2021-04-14] MEDS: heparin, porcine 5000 units/ml vial SQ SCH ×2 (07:52→17:41)
[2021-04-14] MEDS: montelukast 10mg tablet PO SCH (07:52)
[2021-04-14] MEDS: DAPTOmycin inj. 700 MG in normal saline 100ml IV soln 100 ML IV SCH (07:53)
[2021-04-14] MEDS: duloxetine 30mg CAPSULE.DR PO SCH (07:53)
[2021-04-14] MEDS: TERBUTALINE 2.5 MG PO SCH (07:53)
[2021-04-14] MEDS: theophylline anhydrous 100mg ER capsule 24-hour PO SCH (07:53)
[2021-04-14] MEDS: K and/or MAG REPLACEMENT MC SCH (08:00)
[2021-04-14] MEDS: budesonide 0.5mg/2ml UD nebule IH SCH (08:58)
[2021-04-14 11:00] VITALS: BP 119/61
--- NOTE | 2021-04-14 11:32 | NUR ---
RT paged. pt request treatment
--- NOTE | 2021-04-14 12:55 | NUR ---
Reassessment: Pt continues w/ low PO intake ~50% of full liquid meals, not meeting nutritional needs. RD d/w pt food preferences and food allergies. Pt stated some dairy products cause GI upset and increased mucus production, such as milk and cheese w/ other dairy products being more tolerable, such as whey, butter, and ice cream. Pt stated tofu containing foods cause GI upset w/ some soy products such as soy sauce and soy additives being more tolerable in small amounts. Pt stated desire for caffeine free foods stating caffeine previously caused her breast tumor growth. Pt stated willingness to try an advance to low fiber diet if medically indicated along w/ ONS; recommend magic cup smoothies BIDBD to provide increased kcals/protein. Recommend advancing diet as soon as medically feasible per MD, as pt has had inadequate intake since admission ([address] provided pt w/ written and verbal colostomy education w/ RD contact information. Noted 400 ml stool output 04/14, receiving routine reglan. Will continue to monitor. Recommendations: 1) Advance to low fiber diet as medically indicated post-op 2) Magic cup smoothies BIDBD 3) Consider nutrition support given day 15 poor nutrition status with NPO vs restrictive liquids diet throughout LOS 4) Bowel care per MD 5) Scaled weight this admit; weekly scaled weights thereafter Addendum: 04/14/21 at 1257 by Indra Bales - Cable Tender RD Amended: Links added. Addendum: 04/14/21 at [address] I have reviewed and agree w/ assessment by music internship
[2021-04-14] MEDS: ipratropium 0.5 MG/2.5ML nebule NEB PRN (13:51)
[2021-04-14] MEDS: HYDROmorphone inj. 0.5 MG/0.5 ML DISP.SYRIN IV PRN (13:53)
--- NOTE | 2021-04-14 14:26 | NUR ---
OSTOMY FACTS: Almost everyone has know of, or met, businessmen, entertainers, athletes, and people from all walks of life who have an ostomy. Ostomates (a person that has an ostomy) can ski, ride horses, bowl, and get healthy exercise in countless ways. Your usual activities of daily living can be resumed as soon as you are able. Gradually you will be able to wear the clothes worn before surgery. With modern pouches, nothing is noticeable under your clothing. It may be difficult at first to believe that an intimate relationship can be possible when one's body has been disfigured by surgery. This is not true. Love, fortunately, is not easily destroyed when it is based on genuine appreciation of a person as a thinking, feeling, reacting human being. AN OSTOMY IS NOT AN IMPAIRMENT!! DEFINITIONS: 1.OSTOMY: An opening that is created by a surgical procedure. The opening is called a "stoma". 2.STOMA: A surgical opening in the abdomen (belly) where intestine is brought through the abdominal wall and connected at the skin level. A stoma is shiny, wet and at first is dark purple but eventually turns pink, similar to the inside lining of your mouth. 3.COLON: A portion of the large bowel. 4.COLOSTOMY: A fecal diversion with an opening, (stoma) created anywhere along the colon. Making a connection between the colon and the abdominal wall. 5.ILLEOSTOMY: A fecal diversion with an opening, (stoma) created in the small intestine. Making a connection between the small intestine and the abdominal wall. 6.UROSTOMY: A urinary diversion with the ureters connected to a segment of the small bowel and one end is brought out and connected to the abdominal wall, creating a stoma. SHAPES and SIZES: "The stoma is usually round or oval. "It is anywhere from a dime to half dollar in size. "A stoma reaches its permanent size 6-8 weeks after surgery. PRODUCTS: 1.POUCH or APPLIANCE: An external device to contain stool or urine output and protect the skin around the stoma. It can be a one piece pouch or two pieces (a pouch and a wafer). 2.BARRIER: Substance that is used to protect the skin around the stoma from drainage and adhesive. 3.SKIN PREP or SEALANT: Product applied to the skin to reduce injury from moisture, drainage, or repeated pouch removal. Available in spray or wipes. 4.CLOSURE or CLAMP: A device used to close the bottom of a drainable pouch. 5.BRIDGE or ARELY: A piece of plastic placed under a loop of bowel on the skins surface, to secure the bowel in place while the skin heals. POUCH CHANGE PROCEEDURE: 1.Assemble all the supplies "1 or 2 piece appliance "Ostomy paste (if needed) "Ostomy powder (if needed) "Skin prep wipes ( not recommended with coloplast products) "Moist wash cloth or cotton balls 2.Remove plastic center and paper backing from pouch. If pouch or wafer is not precut, use the sizing guide, or plastic backing from pouch to make a pattern. Do this by placing the paper over the stoma and trace it, or draw a pattern. Cut the wafer to fit and set it aside. 3.Remove old pouch by lifting up on tape while pressing skin down away from the tape. If there is a clip on your pouch, remove it and save it. 4.Clean skin or stoma with moistened wash cloth or cotton balls. Place a clean cotton ball over stoma hole to catch any drainage. Let skin dry. 5.For grooves or uneven areas in the skin- apply ostomy paste and sprinkle with ostomy powder, then gently shape the past so the area around the stoma is smooth and as flat as possible. Wipe off or blow away excess. Blot powder with skin prep wipe (DO NOT wipe powder). Let dry until no longer sticky. 6.For irritated or reddened skin- sprinkle ostomy powder on red or irritated area. Wipe off or blow away excess. Blot powder with skin prep wipe (DO NOT wipe powder). Let dry until no longer sticky. 7.Apply skin prep wipe to skin to which the pouch and tape will adhere. Let dry until no longer sticky. 8.If you have a one piece appliance- apply pouch so it is centered around the stoma. No skin should be exposed to stool. All skin should be covered by paste or pouch. 9.If you have a two piece appliance- Apply the wafer as described above, then snap or stick pouch onto wafer. Check to make sure wafer and pouch are securely connected. 10.Place clip on bottom of pouch. 11.Empty pouch when 1/3 full. OSTOMY SKIN CARE: "Good health care and nutrition are essential for healthy skin. "Usually a correct pouch size will prevent skin breakdown. "Use warm water and soap for skin cleansing. "Do not use creams or oil based products on skin around the stoma. This will prevent the appliance from sticking. "Use skin prep around the stoma. IT CAN TAKE 24 HOURS TO SEVERAL DAYS FOR SKIN TO HEAL. IF IT IS NOT RESOLVING, OR GETTING WORSE, CALL YOUR PRIMARY CARE DOCTOR. WOUND INFECTION EDUCATION PROVIDED BY WOUND CARE 1. Patient instructed to call their primary doctor, or go the ED immediately if any of the following symptoms occur: * Increased pain in wound * Increase in drainage from the wound * Redness in the skin surrounding the wound * Warmth in the skin surrounding the wound * Bleeding from the wound * Temperature of 101 or greater 2. If any of these occur while in the hospital tell a nurse immediately. PRESSURE ULCER EDUCATION: DEFINITION: A pressure ulcer is an area of skin that breaks down when you stay in one position too long. The constant pressure against the skin reduces the blood flow to that area and the affected tissue dies. CAUSES: "Being bedridden or in a wheelchair "Fragile skin "Having a chronic condition, such as diabetes or vascular disease "Inability to move certain parts of your body without assistance "Older age "Incontinence of urine or stool SYMPTOMS: "A reddened area that DOES NOT turn white when pressed on - this can be the beginning of a pressure ulcer "A blister, deep sore or a crater - these can be advanced pressure ulcers FIRST AID: "Relieve the pressure on this area "Keep the area clean and dry "Call your primary doctor if you see any of the above symptoms "DO NOT massage the area "DO NOT use a donut shaped or ring shaped pillow- these actually interfere with the blood flow and cause complications PREVENTION: "Check for pressure ulcers everyday "Change position at least every two hours to relieve pressure "Use items that help relieve pressure- pillows, sheepskin, foam padding, and powders. "Keep skin clean and dry "Eat healthy well balanced meals "Exercise daily IF YOU SEE ANY OF THESE SYMPTOMS WHILE IN THE HOSPITAL - TELL YOUR NURSE IMMEDIATELY. IF YOU SEE ANY OF THESE SYMPTOMS WHILE AT HOME OR HAVE ANY QUESTIONS OR CONCERNS ABOUT PRESSURE ULCERS - CALL YOUR PRIMARY DOCTOR IMMEDIATELY. Addendum: 04/14/21 at 1427 by Jeannine Lovelace RN Amended: Links added.
[2021-04-14] MEDS: proCHLORperazine 10 MG/2 ml inj IV PRN (17:40)
[2021-04-14 18:00] VITALS: BP 118/60
--- NOTE | 2021-04-14 18:30 | NUR ---
Patient in room [facility] 352. I have received report from Hina ADAMS and had the opportunity to ask questions and assume patient care.
--- NOTE | 2021-04-14 19:45 | NUR ---
[facility] ready to take patient to [facility] rehab. Patient is A&o, in no pain or distress. Patient pivoted from bed to gurney and all belongings in patient bags with label on went with. Wound care discharge pictures were completed and transfer package given to [facility] personnel.
== END 2021-04-14 19:51 | DRG 853 ==
LOC: ER 21:56 → ED HOLD 03-30 03:21 → SUR 3N 03-30 16:23
PROVIDERS: ADMIT Internal Medicine; ATTEND Family Medicine
PROC: BW211ZZ Computerized Tomography (CT Scan) of Abdomen and Pelvis using Low Osmolar Contrast (ICD-10-PCS; 2021-03-29)
PROC: 5A09357 Assistance with Respiratory Ventilation, Less than 24 Consecutive Hours, Continuous Positive Airway Pressure (ICD-10-PCS; 2021-03-31)
PROC: 5A09357 Assistance with Respiratory Ventilation, Less than 24 Consecutive Hours, Continuous Positive Airway Pressure (ICD-10-PCS; 2021-04-01)
PROC: 5A09357 Assistance with Respiratory Ventilation, Less than 24 Consecutive Hours, Continuous Positive Airway Pressure (ICD-10-PCS; 2021-04-02)
PROC: 5A09357 Assistance with Respiratory Ventilation, Less than 24 Consecutive Hours, Continuous Positive Airway Pressure (ICD-10-PCS; 2021-04-03)
PROC: BW211ZZ Computerized Tomography (CT Scan) of Abdomen and Pelvis using Low Osmolar Contrast (ICD-10-PCS; 2021-04-03)
PROC: 5A09357 Assistance with Respiratory Ventilation, Less than 24 Consecutive Hours, Continuous Positive Airway Pressure (ICD-10-PCS; 2021-04-04)
PROC: 0D1N0Z4 Bypass Sigmoid Colon to Cutaneous, Open Approach (ICD-10-PCS; 2021-04-05)
PROC: 0T788DZ Dilation of Bilateral Ureters with Intraluminal Device, Via Natural or Artificial Opening Endoscopic (ICD-10-PCS; 2021-04-05)
PROC: 0T9B80Z Drainage of Bladder with Drainage Device, Via Natural or Artificial Opening Endoscopic (ICD-10-PCS; 2021-04-05)
PROC: 3E0T3BZ Introduction of Anesthetic Agent into Peripheral Nerves and Plexi, Percutaneous Approach (ICD-10-PCS; 2021-04-05)
PROC: 3E0T33Z Introduction of Anti-inflammatory into Peripheral Nerves and Plexi, Percutaneous Approach (ICD-10-PCS; 2021-04-05)
PROC: 0DTN0ZZ Resection of Sigmoid Colon, Open Approach (ICD-10-PCS; principal; 2021-04-05 08:10)
PROC: 0DNW0ZZ Release Peritoneum, Open Approach (ICD-10-PCS; 2021-04-05 08:10)
PROC: 5A09357 Assistance with Respiratory Ventilation, Less than 24 Consecutive Hours, Continuous Positive Airway Pressure (ICD-10-PCS; 2021-04-06)
PROC: 5A09357 Assistance with Respiratory Ventilation, Less than 24 Consecutive Hours, Continuous Positive Airway Pressure (ICD-10-PCS; 2021-04-14)
DX: A41.9 Sepsis, unspecified organism (principal); K65.9 Peritonitis, unspecified; N17.0 Acute kidney failure with tubular necrosis; K57.20 Diverticulitis of large intestine with perforation and abscess without bleeding; D83.9 Common variable immunodeficiency, unspecified; E87.1 Hypo-osmolality and hyponatremia; K56.7 Ileus, unspecified; N18.30 Chronic kidney disease, stage 3 unspecified; M79.7 Fibromyalgia; D64.9 Anemia, unspecified; E87.6 Hypokalemia; F12.90 Cannabis use, unspecified, uncomplicated; Z20.822 Contact with and (suspected) exposure to COVID-19; G40.909 Epilepsy, unspecified, not intractable, without status epilepticus; G89.29 Other chronic pain; G47.33 Obstructive sleep apnea (adult) (pediatric); J44.9 Chronic obstructive pulmonary disease, unspecified; K59.09 Other constipation; K66.0 Peritoneal adhesions (postprocedural) (postinfection); E66.01 Morbid (severe) obesity due to excess calories; K76.0 Fatty (change of) liver, not elsewhere classified; Z60.2 Problems related to living alone; N73.9 Female pelvic inflammatory disease, unspecified; F32.A Depression, unspecified; F41.9 Anxiety disorder, unspecified; K21.9 Gastro-esophageal reflux disease without esophagitis; M54.9 Dorsalgia, unspecified; R19.00 Intra-abdominal and pelvic swelling, mass and lump, unspecified site; Z90.710 Acquired absence of both cervix and uterus; Z68.37 Body mass index [BMI] 37.0-37.9, adult; Z90.49 Acquired absence of other specified parts of digestive tract; Z88.8 Allergy status to other drugs, medicaments and biological substances; Z88.6 Allergy status to analgesic agent; Z91.011 Allergy to milk products; Z88.0 Allergy status to penicillin; Z91.013 Allergy to seafood
CPT/HCPCS: 36415; 71045; 74176; 74177; 76000; 80048; 80053; 80076; 80202; 81003; 82565; 82784; 83605; 83690; 83735; 84132; 85007; 85025; 85610; 86885; 86900; 86901; 87040; 87070; 87075; 87077; 87081; 87186; 87635; 88307; 93005; 94640; 94760; 96361; 96374; 96375; 97110; 97116; 97140; 97161; 97530; 99285; A4215; A4421; A4618; A6253; A6407; A6449; A7000; C1758; C1769; C9113; C9290; C9803; G0378; J0744; J0780; J0878; J1100; J1170; J1580; J1644; J2185; J2250; J2270; J2405; J2704; J3010; J3370; J3490; J7030; J7120; J8597; P9045; Q9963; Q9967